=== PATIENT | female | born 1955 ===

== ENCOUNTER 2024-11-26 11:26 | Outpatient (AMB) | payer OTHER, SELFPAY ==
--- NOTE | 2024-11-26 11:31 | A.OFFPC_ITS ---
Vital Signs 11/26/24 11:42 Height 5 ft 4.57 in Weight 182 lb 2 oz BMI 30.7 BP 90/60 Blood Pressure Location Lt brachial Position Sitting Respiration 16 Pulse 89 Pulse Source Pulse Oximeter Temp 97.5 F Temp Source Oral Pulse Oximetry (%) 97 Oxygen Delivery Method Room Air Intake Visit Reasons: Headache with dizziness Intake Note: pt here for a check up and body pain head pain and dizziness have right side cant fell it. Transportation Mechanic Required: No Accompanied by: Self / Same As Patient Allergies amoxicillin (From Augmentin) Allergy (Mild, Verified 11/26/24 11:43) Rash clavulanic acid (From Augmentin) Allergy (Mild, Verified 11/26/24 11:43) Rash Tobacco use date assessed: 11/26/24 Fall risk assessment: 1 Fall in past year Last assessed Fall Risk: 11/26/24 Dental Screening Dental Screen Date: 11/26/24 Did you have a dental visit in the last 12 months?: No Did you have a dental problem in the last 6 months where you did not have access to dental care?: No Was dental information given to patient?: Patient has dentist HPI HPI Comments History of Present Illness Details History of Present Illness The patient is a 69-year-old female presenting with chronic knee pain and right shoulder pain, alongside management of heart failure and atrial fibrillation. 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 Chronic knee pain: - The patient reports chronic knee pain for several years, with previous interventions including X-rays, physical therapy, and injections, which have not provided relief. She uses a cane and she does have gait and mobility issues Right shoulder pain: - The patient experiences right shoulder pain, with limited range of motion and difficulty lifting the arm, without a history of trauma. Health Maintenance - Mammography was performed and is due a gain in October. Review of Systems - Cardiovascular: Reports heart failure and atrial fibrillation. - Musculoskeletal: Reports chronic knee pain and right shoulder pain with limited range of motion. 10-point ROS reviewed and negative excep t as noted in HPI Medications - Eliquis for atrial fibrillation - Metoprolol for atrial fibrillation -Entresto 24-26 mg 1 tab p.o. b.i.d. Past Medical History - Heart failure - Atrial fibrillation Social History - The patient is originally from [place] and has been in the current location for about 6 months. Physical Exam General: No apparent distress. Alert and oriented x 3. Head: Normocephalic, atraumatic Eyes: Pupils equal, round, and reactive to light. Extraocular movements intact Throat: O ropharynx clear. Mucus membranes moist Neck: Supple. No l eft anterior descending artery distention. No jugular vein distention. No bruit. Cardiovascular: Irregular heartbeat noted. Atrial fibrillation present. Regular rate and rhythm. Normal S1 and S2. No murmurs, rubs, or gallops Lungs: Clear to auscultation bilaterally. Breath sounds equal bilaterally. No rales, ronchi, or wheezes. Abdomen: Non-tender. Non-distended. Bowel sounds auscultated. No hepatosplenomegaly. No mass/rebound/guarding Extremities: Pain on extension of the left knee. Mild crepitus on extension and flexion of the left knee. No swelling of the lower extremities. Cannot lift right arm on active or passive motion. Cannot reach the back with the right arm. lubbing, cyanosis, and edema. 2+ pulses Neuro: Central nerves II-XII grossly intact. Motor/sensory intact. Reflexes 2. Gait normal Skin: Warm, dry, and intact. No rash. Discussion Notes I discussed with the patient the management of her chronic knee pain and right shoulder pain. We agreed to perform X-rays to assess the condition of both knees and the right shoulder. I also recommended a referral to a pain specialist for further management of her pain. We discussed the importance of continuing her current medications for atrial fibrillation and heart failure, and the need for regular follow-ups with her stitch bonding machine operator. Plan 1. Chronic systolic (congestive) heart f ailure I50.22 HCC 85 - Continue current management and follow -up with stitch bonding machine operator. No recent echocardiogram noted. 2. Unspecified atrial fibrillation I48.91 HCC 96 - Continue Eliquis and metoprolol. Regul ar follow-up with stitch bonding machine operator recommended. 3. Pain in unspecified knee M25.56 9 - X-ray of both knees ordered. Referral to pain specialist for further management. Consideration of orthopedic consultation if necessary. 4. Pain in right shoulder M25.511 - X-ray of the right shoulder ordered. R tanneral to pain specialist for further management. Patient Instructions - Continue taking Eliquis and metoprolol as prescribed. - Attend scheduled X-rays for both knees and the right shoulder. - Follow up with the pain specialist for chronic pain management. - Schedule regular follow-ups with your stitch bonding machine operator. [facility] Medical History Pain and swelling of lower leg Vaginal atrophy Uterine prolapse Trapezius muscle spasm Tietze's syndrome Thyroglossal duct cyst Pain in right shoulder Osteoarthritis of left knee Obesity, Class I, BMI 30-34.9 Multiparous Low back pain Bilateral shoulder pain Back muscle spasm A-fib FALCON (dyspnea on exertion) GERD (gastroesophageal reflux disease) Glucose intolerance Hearing loss, left Heart failure with reduced ejection fraction Chronic headaches Vitamin D deficiency Surgical History S/P tubal ligation Family History (Updated 11/26/24 @ 11:47 by Song Mosqueda MA) Father No problems noted. Mother Stomach cancer Social History (Updated 11/26/24 @ 11:33 by Song Mosqueda MA) Housing: House Alcohol intake: current Alcohol intake frequency: does not drink Patient Tobacco Use Status: Never used Tobacco service: No Current occupational status: disabled Cognitive needs: Yes (cane) Hearing needs: No Vision needs: Yes (contact) Questionnaire PHQ-9 Over the last 2 weeks, how often have you been bothered by any of the following problems? 1. Little interest or pleasure in doing things: not at all 2. Feeling down, depressed, or hopeless: not at all 3. Trouble falling or staying asleep, or sleeping too much: not at all 4. Feeling tired or having little energy: not at all 5. Poor appetite or overeating: not at all 6. Feeling bad about yourself - or that you are a failure or have let yourself or your family down: not at all 7. Trouble concentrating on things, such as reading the newspaper or watching television: not at all 8. Moving or speaking so slowly that other people could have noticed. Or the opposite - being so fidgety or restless that you have been moving around a lot more than usual: not at all 9. Thoughts that you would be better off or of hurting yourself in some way: not at all Total score: 0 Depression Screening Interpretation: Negative Depression Screening Done: Yes Source: Developed by Drs. Cecilio Crawford, Ilana Knox, Joe Cameron and colleagues, with an educational mic from [employer]. Thrive Questionnaire Date Thrive assessed: 11/26/24 I am a: Patient What is your living situation today?: I have a steady place to live Within the past 12 months, did the food you bought not last and you didn't have the money to get more?: Never true Within the past 12 months, did you worry whether your food would run out before you got money to buy more?: Never true Do you have trouble paying for medicines?: No Do you have trouble getting transportation to medical appointments?: No Do you have trouble paying your heating and electricity bill?: No Do you have trouble taking care of your child, family member or friend?: No Do you have trouble with day-to-day activities such as bathing, preparing meals, shopping, managing finances, etc.?: No Are you currently unemployed and looking for a job?: No Are you interested in more education?: No Please select the resources that you would like help with: None Currently or been in a relationship where the following occur: No concerns reported THRIVE Score: 0 AUDIT C Alcohol Use Questionnaire (AUDIT-C) 1. How often do you have a drink containing alcohol?: Never 3. How often do you have six or more drinks on one occasion?: Never Total Score: 0 AUSTIN-7 AMB Questionnaire AUSTIN-7 Date AUSTIN - 7 assessed: 11/26/24 Feeling nervous, anxious, or on edge: 0 = Not at all Not being able to stop or control worryin = Not at all Worrying too much about different things: 0 = Not at all Trouble relaxin = Not at all Being so restless that it is hard to sit still: 0 = Not at all Becoming easily annoyed or irritable: 0 = Not at all Feeling afraid as if something awful might happen: 0 = Not at all Total AUSTIN-7 score (0-4 normal; 5-9 mild; 10-14 moderate; 15-21 severe): 0 Source: Developed by Drs. Cecilio Crawford, Ilana Knox, Joe Cameron and colleagues, with an educational mic from [employer]. Physical exam (Primary Care) Tobacco/Smoking Status: Tobacco use Status Tobacco use date assessed 11/26/24 11/26/24 11:34 Patient Tobacco Use Status Never used Tobacco 11/26/24 11:34 PHQ-9: PHQ-9 Score PHQ-9: Total score 0 11/26/24 11:34 Depression Screening Interpretation: Negative Thrive Assessment: Date of Thrive Assessment Date Thrive assessed 11/26/24 11/26/24 11:34 Currently or been in a relationship where the following occur: No concerns reported Coding Level of Care Code New Pt Level 3 (14063) Diagnoses Establishing care with new doctor, encounter for Z. Routine lab draw Z. Counseling, unspecified Z71.9 HFrEF (heart failure with reduced ejection fraction) I50.20 Chronic a-fib I48.20 Class 1 obesity E66.811 Fall, initial encounter W19.XXXA Encounter type: initial encounter Chronic pain of both knees M25.561; M25.562; G89.29 Chronicity: chronic Chronic right shoulder pain M25.511; G89.29 Chronicity: chronic Impaired gait and mobility R26.89 Encounter for screening mammogram for breast cancer Z12.31 Assessment & Plan Assessment & Plan (1) Establishing care with new doctor, encounter for: Code(s): Z76.89 - Persons encountering health services in other specified circumstances (2) Routine lab draw: Code(s): Z01.89 - Encounter for other specified special examinations (3) Counseling, unspecified: Code(s): Z71.9 - Counseling, unspecified (4) HFrEF (heart failure with reduced ejection fraction): Code(s): I50.20 - Unspecified systolic (congestive) heart failure (5) Chronic a-fib: Code(s): I48.20 - Chronic atrial fibrillation, unspecified (6) Class 1 obesity: Code(s): E66.811 - Obesity, class 1 (7) Fall: Code(s): W19.XXXA - Unspecified fall, initial encounter Qualifiers: Encounter type: initial encounter Qualified Code(s): W19.XXXA - Unspecified fall, initial encounter (8) Knee pain, bilateral: Code(s): M25.561 - Pain in right knee; M25.562 - Pain in left knee Qualifiers: Chronicity: chronic Qualified Code(s): M25.561 - Pain in right knee; M25.562 - Pain in left knee; G89.29 - Other chronic pain (9) Right shoulder pain: Code(s): M25.511 - Pain in right shoulder Qualifiers: Chronicity: chronic Qualified Code(s): M25.511 - Pain in right shoulder; G89.29 - Other chronic pain (10) Impaired gait and mobility: Code(s): R26.89 - Other abnormalities of gait and mobility (11) Encounter for screening mammogram for breast cancer: Code(s): Z12.31 - Encounter for screening mammogram for malignant neoplasm of breast Plan Orders: Orders MM screening mammo BI Today Z12.39 - Encounter for other screening for malignant neoplasm of breast, Z76. - Persons encountering health services in other specified circumstances Comprehensive Met. Panel Today Z - Persons encountering health services in other specified circumstances Hepatitis C Antibody Today Z - Persons encountering health services in other specified circumstances UA CC w/rflx Micro + Cult Today Z. - Persons encountering health services in other specified circumstances Vitamin D 1,25 dihydroxy Today Z. - Persons encountering health services in other specified circumstances XR Knee Corey 3V Today G89.29 - Other chronic pain, M25.569 - Pain in unspecified knee XR shoulder RT min 2V Today G89.29 - Other chronic pain, M25.519 - Pain in unspecified shoulder Complete Blood Count Auto Diff Today Z. - Persons encountering health services in other specified circumstances Hemoglobin A1c Today Z. - Persons encountering health services in other specified circumstances Hepatitis B Surface Antibody Today Z. - Persons encountering health services in other specified circumstances Hepatitis B Surface Antigen Today Z. - Persons encountering health services in other specified circumstances HIV Ab/Ag Today Z. - Persons encountering health services in other specified circumstances Lipid Panel Today Z. - Persons encountering health services in other specified circumstances Referrals Pain Management Referral G89.29 - Other chronic pain, M25.569 - Pain in unspecified knee
[2024-11-26 11:42] VITALS: BP 90/60; PULSE 89; RESP 16; TEMP 36.4; O2SAT 97; BMI 30.7
== END 2024-11-26 12:23 | disposition home or self-care (01) ==
PROVIDERS: PCP Student in an Organized Health Care Education/Training Program; Visit Provider Student in an Organized Health Care Education/Training Program
DX: I50.20 Unspecified systolic (congestive) heart failure (principal); I48.20 Chronic atrial fibrillation, unspecified; M25.562 Pain in left knee; W19.XXXA Unspecified fall, initial encounter; G89.29 Other chronic pain; M25.561 Pain in right knee; E66.811 Obesity, class 1; M25.511 Pain in right shoulder; R26.89 Other abnormalities of gait and mobility; Z12.31 Encounter for screening mammogram for malignant neoplasm of breast

== ENCOUNTER → 2024-11-26 11:26 | Outpatient (BNVA) | payer OTHER, SELFPAY | PROVIDERS: Visit Provider Student in an Organized Health Care Education/Training Program | DX: Z76.89 Persons encountering health services in other specified circumstances (principal); I50.20 Unspecified systolic (congestive) heart failure; I48.20 Chronic atrial fibrillation, unspecified; E66.811 Obesity, class 1; Z68.30 Body mass index [BMI] 30.0-30.9, adult; M25.561 Pain in right knee; M25.562 Pain in left knee; M25.511 Pain in right shoulder; G89.29 Other chronic pain; R26.89 Other abnormalities of gait and mobility; Z79.01 Long term (current) use of anticoagulants; Z79.899 Other long term (current) drug therapy; Z91.81 History of falling; Z13.31 Encounter for screening for depression; Z13.39 Encounter for screening examination for other mental health and behavioral disorders | CPT/HCPCS: 96127; 99202 ==

== ENCOUNTER 2024-12-01 10:43 | Outpatient (REF) | payer OTHER, SELFPAY ==
[2024-12-01 11:03] LABS: MANUAL DIFF FLAG NO
[2024-12-01 11:31] LABS: Hematocrit 39.1 % (37.0-47.0); Hemoglobin 12.4 g/dl (12.0-16.0); Imm Gran Abs Auto 0.01 X10*3/uL (0.00-0.03); Imm Gran Pct Auto 0.3 % (0.0-0.4); Lymphocytes Absolute Auto 1.6 X10*3/uL (1.2-4.9); Mean Corpuscular HGB Conc 31.7 g/dl (31.0-35.0); Mean Corpuscular Hemoglobin 25.7 pg (27.0-33.0); Mean Corpuscular Volume 81.1 fL (80.0-98.0); NRBC Abs Auto 0.000 X10*3/uL (0.0-0.012); NRBC Pct Auto 0.0 /100WBC (0.0-0.2); Platelet Count 179 X10*3/uL (160-400); Red Blood Count 4.82 X10*6/uL (4.20-5.50); White Blood Count 4.0 X10*3/uL (4.8-10.8)
[2024-12-01 11:49] LABS: Hemoglobin A1C 136.4059 umol/L; Total Hemoglobin (HGBA1C) 3227.9133 umol/L
[2024-12-01 12:05] LABS: Alanine Aminotransferase 17 U/L (0-31); Albumin Level 4.3 g/dL (3.5-5.0); Alkaline Phosphatase 74 U/L (39-117); Anion Gap 7 (12-20); Aspartate Amino Transferase 23 U/L (5-31); Blood Urea Nitrogen 15 mg/dL (9-16); Calcium 9.2 mg/dL (8.4-10.2); Carbon Dioxide 32 mmol/L (22-29); Chloride 107 mmol/L (96-108); Cholesterol 185 mg/dL (<200); Estimated Glomerular Filt Rate > 60; HDL Cholesterol 59 mg/dL (>40); Potassium 4.2 mmol/L (3.3-5.1); Sodium 142 mmol/L (135-145); Total Protein 7.0 g/dL (6.5-8.0); Triglycerides 103 mg/dL (<150)
--- OUTSIDE RECORDS SUMMARY | 2024-12-01 13:38 | XMS_ITS | Clinical Summary ---
Author Organization [facility] Address [address] [place] [address] Care Team Providers Care Senior Agricultural Assistant Name Role Phone Trish Coleman DO Primary Care Provider [phone] Social History Tobacco Use Types Packs/Day Years Used Date Smoking Tobacco: Never Assessed Comments Unknown Sex and Gender Information Value Date Recorded Sex Assigned at Not on file Legal Sex Female 2:26 PM EST Gender Identity Not on file Sexual Orientation Not on file Plan of Treatment Health Maintenance Due Date Last Done Comments Breast Cancer Screening 1955 Pneumococcal Vaccine: 50+ Ye ars (1 of 1 - PCV) 2007 Zoster Vaccines (1 of 2) 2007 DTaP,Tdap,and Td Vaccines (2 - Td or Tdap) 08/08/2019 08/07/2009 Depression Screening 03/17/2024 COVID-19 Vaccine ( - 2023-2 5 season) 2024 Influenza Vaccine (#1) 2024 06/03/2016 RSV Immunization Adult Patie nts (1 - 1-dose 75+ series) 2032 HIB Vaccines Aged Out No longer eligi ble based on patient's age to complete this topic HPV Vaccines Aged Out No longer eligi ble based on patient's age to complete this topic Hepatitis A Vaccines Aged Out No long er eligible based on patient's age to complete this topic Hepatitis B Vaccines Aged Out No long er eligible based on patient's age to complete this topic IPV Vaccines Aged Out No longer eligi ble based on patient's age to complete this topic MMR Vaccines Aged Out No longer eligi ble based on patient's age to complete this topic Meningococcal ACWY Vaccine Aged Out N o longer eligible based on patient's age to complete this topic Meningococcal B Vaccine Aged Out No l onger eligible based on patient's age to complete this topic RSV Immunization Patients Un brittany 20 months Aged Out No longer eligible b ased on patient's age to complete this topic Varicella Vaccines Aged Out No longer eligible based on patient's age to complete this topic Care Teams Senior Agricultural Assistant Relationship Specialty Start Date [place] [address] PCP - General Internal Medicine 03/27/17
[2024-12-02 06:14] LABS: HBS Num1 0.78 mIU/mL (0-7.99); HBsAGNum1 0.42 S/CO (0.00-0.99); HIV Num 1 0.05 S/CO (0.00-0.99); Hepatitis B Surface Antigen Negative (Negative); ~HepC Num1 0.06 S/CO (0.00-0.79); ~Hepatitis B Surface Antibody NONREACTIVE (Nonreactive); ~Hepatitis C Antibody Nonreactive (Nonreactive)
[2024-12-07 04:38] LABS: VITAMIN D (1,25 OH) D3 28 pg/mL; Vit D (1,25-Dihydroxy) Total 28 pg/mL (18-72); Vitamin D (1,25 OH) D2 <8 pg/mL
== END 2024-12-01 10:44 | disposition home or self-care (01) ==
LOC: HO.LAB 10:43
PROVIDERS: PCP Student in an Organized Health Care Education/Training Program; Visit Provider Student in an Organized Health Care Education/Training Program
DX: Z11.59 Encounter for screening for other viral diseases (principal); Z13.6 Encounter for screening for cardiovascular disorders; Z13.1 Encounter for screening for diabetes mellitus; Z11.4 Encounter for screening for human immunodeficiency virus [HIV]; Z76.89 Persons encountering health services in other specified circumstances
CPT/HCPCS: 36415; 80053; 80061; 82652; 83036; 85025; 86706; 86803; 87340; 87389

== ENCOUNTER 2024-12-10 09:40 | Outpatient (AMB) | payer OTHER, SELFPAY ==
[2024-12-10 09:46] VITALS: BP 137/70; PULSE 77; RESP 16; TEMP 36.6; O2SAT 98; BMI 31.2
--- NOTE | 2024-12-10 09:46 | MHC.PC.OV ---
Vital Signs 12/10/24 09:46 Height 5 ft 4.57 in Weight 185 lb BMI 31.2 BP 137/70 Blood Pressure Location Rt brachial Position Sitting Respiration 16 Pulse 77 Pulse Source Pulse Oximeter Temp 97.9 F Temp Source Oral Pulse Oximetry (%) 98 Oxygen Delivery Method Room Air Intake Visit Reasons: 2 weeks f/u Intake Note: pt here for a check up and body pain head pain and dizziness have right side cant fell it. 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 Accompanied by: Self / Same As Patient Allergies No Known Allergies Allergy (Verified 12/10/24 09:49) Tobacco use date assessed: 11/26/24 Fall risk assessment: 1 Fall in past year Last assessed Fall Risk: 11/26/24 Dental Screening Dental Screen Date: 11/26/24 Did you have a dental visit in the last 12 months?: No Did you have a dental problem in the last 6 months where you did not have access to dental care?: No Was dental information given to patient?: Patient has dentist HPI HPI Comments History of Present Illness Details History of Present Illness The patient is a 69-year-old female presenting with a mass on the right side of the trachea and urinary incontinence. And results from last encounters Mass on the right side of the trachea: - The patient reports a mass on the right side of the trachea, with intermittent pain. Urinary incontinence: - The patient experiences urinary incontinence and has been referred to a urologist for further evaluation. Prediabetes: - The patient is prediabetic with an HbA1c level between 5.7 and 6.4%. - Dietary modifications were discussed to manage carbohydrate intake. Hyperlipidemia: - The patient has hyperlipidemia with LDL cholesterol slightly elevated at 106 mg/dL. - Dietary recommendations were provided to reduce intake of high-fat foods. Review of Systems - Endocrine: Reports prediabetes. - Genitourinary: Reports urinary incontinence. - Cardiovascular: Denies chest pain or palpitations. 10-point ROS reviewed and negative except as noted in HPI Past Medical History - Prediabetes - Hyperlipidemia Health Maintenance - Dietary counseling for prediabetes and hyperlipidemia. - Referral to a computer art instructor for dietary management. Physical Exam General: Well-appearing, in no acute distress. Vital signs: Within normal limits. HEENT: Normocephalic, atraumatic. PERRLA, EOMI. Conjunctiva clear, sclera anicteric. Oropharynx clear, mucous membranes moist. TMs intact bilaterally. Neck: Supple, mass on the right side of the trachea, no lymphadenopathy, no thyromegaly, no JVD or carotid bruits. Cardiovascular: RRR, normal S1/S2, no murmurs, rubs, or gallops. Peripheral pulses 2+ and symmetric. No edema. Respiratory: Lungs clear to auscultation bilaterally, no wheezes, rales, or rhonchi. Normal effort. Abdomen: Soft, non-tender, non-distended. Normoactive bowel sounds. No hepatosplenomegaly, no masses. MSK: Full range of motion, no joint swelling or deformity. Normal gait. Skin: Warm, dry, intact. No rashes, lesions, or pallor. Neuro: Alert and oriented x3. Cranial nerves II-XII intact. Strength 5/5 throughout. Sensation intact. Reflexes 2+ symmetric. Normal coordination and gait. Psych: Appropriate mood and affect. Normal judgment and insight. Plan 1. Mass On The Right Side Of The Trachea - Further evaluation is needed to assess the mass on the right side of the trachea. - ultrasound soft tissue of neck 2. Urinary Incontinence - Referral to a urologist for further evaluation and management. - we will hold off on medication at this time since this has been a chronic issue -we did discuss exercises for her urinary incontinence 3. Prediabetes - Dietary modifications recommended to manage carbohydrate intake. - Referral to a computer art instructor for dietary management. 4. Hyperlipidemia - Dietary recommendations provided to reduce intake of high-fat foods. - Monitor lipid levels and consider further intervention if necessary. Discussion Notes I discussed with the patient the presence of a mass on the right side of the trachea and the need for further evaluation. We also talked about urinary incontinence and the referral to a urologist for further management. I explained the implications of prediabetes and hyperlipidemia, emphasizing dietary modifications and the potential benefits of consulting a computer art instructor. The patient was informed about the importance of monitoring lipid levels and managing carbohydrate intake to prevent progression to diabetes. Patient was informed and verbally consented to the use of an ambient scribe for clinic note documentation during this visit. Patient Instructions - Follow up with the urologist as scheduled. - Take prescribed medication for urinary incontinence as directed. - Monitor dietary intake, focusing on reducing carbohydrates and high-fat foods. - Consider consulting a computer art instructor for personalized dietary advice. [facility] Medical History (Updated 12/10/24 @ 10:11 by Aiden Shepard MD) Mass in neck Hyperlipidemia Prediabetes Urinary incontinence Pain and swelling of lower leg Vaginal atrophy Uterine prolapse Trapezius muscle spasm Tietze's syndrome Thyroglossal duct cyst Pain in right shoulder Osteoarthritis of left knee Obesity, Class I, BMI 30-34.9 Multiparous Low back pain Bilateral shoulder pain Back muscle spasm A-fib FALCON (dyspnea on exertion) GERD (gastroesophageal reflux disease) Glucose intolerance Hearing loss, left Heart failure with reduced ejection fraction Chronic headaches Vitamin D deficiency Surgical History S/P tubal ligation Family History Father No problems noted. Mother Stomach cancer Social History Housing: House Alcohol intake: current Alcohol intake frequency: does not drink Patient Tobacco Use Status: Never used Tobacco service: No Current occupational status: disabled Cognitive needs: Yes (cane) Hearing needs: No Vision needs: Yes (contact) Questionnaire PHQ-9 Over the last 2 weeks, how often have you been bothered by any of the following problems? 1. Little interest or pleasure in doing things: several days 2. Feeling down, depressed, or hopeless: not at all 3. Trouble falling or staying asleep, or sleeping too much: not at all 4. Feeling tired or having little energy: several days 5. Poor appetite or overeating: not at all 6. Feeling bad about yourself - or that you are a failure or have let yourself or your family down: not at all 7. Trouble concentrating on things, such as reading the newspaper or watching television: not at all 8. Moving or speaking so slowly that other people could have noticed. Or the opposite - being so fidgety or restless that you have been moving around a lot more than usual: nearly every day 9. Thoughts that you would be better off or of hurting yourself in some way: nearly every day Total score: 8 Source: Developed by Drs. Cecilio Crawford, Ilana Knox, Joe Cameron and colleagues, with an educational mic from [employer]. Thrive Questionnaire Date Thrive assessed: 11/26/24 I am a: Patient What is your living situation today?: I choose not to answer this question Within the past 12 months, did the food you bought not last and you didn't have the money to get more?: I choose not to answer this question Within the past 12 months, did you worry whether your food would run out before you got money to buy more?: I choose not to answer this question Do you have trouble paying for medicines?: No Do you have trouble getting transportation to medical appointments?: No Do you have trouble paying your heating and electricity bill?: No Do you have trouble taking care of your child, family member or friend?: I choose not to answer this question Are you currently unemployed and looking for a job?: No Are you interested in more education?: No Please select the resources that you would like help with: Utilities Currently or been in a relationship where the following occur: I choose not to answer THRIVE Score: 0 AUDIT C Alcohol Use Questionnaire (AUDIT-C) 1. How often do you have a drink containing alcohol?: Never Total Score: 0 AUSTIN-7 AMB Questionnaire AUSTIN-7 Date AUSTIN - 7 assessed: 11/26/24 Feeling nervous, anxious, or on edge: 3 = Nearly every day Not being able to stop or control worryin = Nearly every day Worrying too much about different things: 2 = More than half the days Trouble relaxin = Not at all Being so restless that it is hard to sit still: 3 = Nearly every day Becoming easily annoyed or irritable: 1 = Several days Feeling afraid as if something awful might happen: 1 = Several days Total AUSTIN-7 score (0-4 normal; 5-9 mild; 10-14 moderate; 15-21 severe): 13 Source: Developed by Drs. Cecilio Crawford, Ilana Knox, Joe Cameron and colleagues, with an educational mic from [employer]. Physical exam (Primary Care) Vital Signs: Last Vital Signs Temp 97.9 F 12/10/24 09:46 Pulse 77 12/10/24 09:46 Resp 16 12/10/24 09:46 BP 137/70 12/10/24 09:46 Pulse Ox 98 12/10/24 09:46 Oxygen Delivery Method Room Air 12/10/24 09:46 BMI result Body Mass Index 31.2 Tobacco/Smoking Status: Tobacco use Status Tobacco use date assessed 11/26/24 12/10/24 09:54 Patient Tobacco Use Status Never used Tobacco 12/10/24 09:54 PHQ-9: PHQ-9 Score PHQ-9: Total score 8 12/10/24 09:54 Thrive Assessment: Date of Thrive Assessment Date Thrive assessed 11/26/24 12/10/24 09:54 Currently or been in a relationship where the following occur: I choose not to answer Coding Level of Care Code Est Pt Level 3 (30574) Diagnoses Urinary incontinence R32 Prediabetes R73.03 Mass in neck R22.1 Hyperlipidemia E78.5 Class 1 obesity E66.811 Use of cane as ambulatory aid Z99.89 Assessment & Plan Assessment & Plan (1) Urinary incontinence: Code(s): R32 - Unspecified urinary incontinence Category: Medical (2) Prediabetes: Code(s): R73.03 - Prediabetes Category: Medical (3) Mass in neck: Code(s): R22.1 - Localized swelling, mass and lump, neck Category: Medical (4) Hyperlipidemia: Code(s): E78.5 - Hyperlipidemia, unspecified Category: Medical (5) Class 1 obesity: Code(s): E66.811 - Obesity, class 1 (6) Use of cane as ambulatory aid: Code(s): Z99.89 - Dependence on other enabling machines and devices Plan Orders: Orders US soft tiss head and/or neck Today R22.1 - Localized swelling, mass and lump, neck Referrals Nurse Navigator Referral E78.5 - Hyperlipidemia, unspecified, R73.03 - Prediabetes Urology Referral R32 - Unspecified urinary incontinence
--- OUTSIDE RECORDS SUMMARY | 2024-12-10 10:42 | XMS_ITS | Clinical Summary ---
Author Organization [facility] ity Address [address] [place] [address] Care Team Providers Care Senior Training Specialist Name Role Phone Trish Coleman DO Primary Care Provider Social History Tobacco Use Types Packs/Day Years [...] to complete this topic Care Teams Senior Training Specialist Relationship Specialty Start Date [place] [address] PCP - General Internal Medicine 03/27/17
== END 2024-12-10 10:12 | disposition home or self-care (01) ==
LOC: HO.HMCFMS 09:41
PROVIDERS: PCP Student in an Organized Health Care Education/Training Program; Visit Provider Student in an Organized Health Care Education/Training Program
DX: R73.03 Prediabetes (principal); R32 Unspecified urinary incontinence; Z68.31 Body mass index [BMI] 31.0-31.9, adult; E66.811 Obesity, class 1; R22.1 Localized swelling, mass and lump, neck; E78.5 Hyperlipidemia, unspecified; Z99.89 Dependence on other enabling machines and devices

== ENCOUNTER → 2024-12-10 09:40 | Outpatient (BNVA) | payer OTHER, SELFPAY | PROVIDERS: PCP Student in an Organized Health Care Education/Training Program; Visit Provider Student in an Organized Health Care Education/Training Program | DX: R32 Unspecified urinary incontinence (principal); R73.03 Prediabetes; R22.1 Localized swelling, mass and lump, neck; E78.5 Hyperlipidemia, unspecified; E66.811 Obesity, class 1; Z68.31 Body mass index [BMI] 31.0-31.9, adult; Z99.89 Dependence on other enabling machines and devices; Z13.30 Encounter for screening examination for mental health and behavioral disorders, unspecified; M17.12 Unilateral primary osteoarthritis, left knee; M25.561 Pain in right knee; M25.562 Pain in left knee | CPT/HCPCS: 96127; 99202; 99212 ==

== ENCOUNTER 2024-12-10 13:08 | Outpatient (AMB) | payer OTHER, SELFPAY ==
--- NOTE | 2024-12-10 13:20 | MHC.OFFVIS ---
Vital Signs 12/10/24 13:25 Height 5 ft 4.57 in Weight 180 lb BMI 30.4 BP 122/85 Blood Pressure Location Lt brachial Position Sitting Pulse 101 H Pulse Source Pulse Oximeter Pulse Oximetry (%) 98 Oxygen Delivery Method Room Air Intake Visit Reasons: Pain in unspecified knee Intake Note: Pain today 11/24 Allergies amoxicillin (From Augmentin) Allergy (Unknown, Verified 12/10/24 13:25) Unknown clavulanic acid (From Augmentin) Allergy (Unknown, Verified 12/10/24 13:25) Unknown HPI Comments Details: The patient is a 69-year-old female presenting with left knee pain. The pain began a couple of months ago and has persisted without a specific injury or inciting event. It is described as sharp, burning, and aching and significantly interferes with her sleep and daily activities. She reports that the pain is exacerbated by activities such as climbing stairs, walking, and standing up from a sitting position. While previously undergoing physical therapy at [facility] and receiving knee injections 2-3 years ago at [facility] provided initial relief, these solutions have not offered long-term benefits. In addition to the left knee pain, the patient also reports right knee pain, although it is less severe. She experiences additional discomfort in her shoulders and lower back, which she describes similarly as sharp and burning. The patient's medical history includes prediabetes and atrial fibrillation for which she takes Eliquis. She reports nocturnal urinary incontinence, with pending referral to Urology. Patient was seen at [facility] for back pain with known history of spinal and foraminal stenosis per MRI 2022. - Onset: Chronic pain for 3 years, worsening for past few months - Quality: Sharp, burning, dull and aching. - Location: Primarily in the left knee, with lesser involvement of the right knee. - Exacerbating factors: Climbing stairs, walking, and transition from sitting to standing. - Relieving factors: Initial relief from previous knee cortisone injections, ice, Tylenol - Interference: Affects sleep and daily activities. - Affect: Pain impacts sleep and daily activities. - Analgesia: Previously received knee injections with initial relief; considering diagnostic injections and nerve ablation. - Adverse Effects: No adverse effects from current pain management. - Activities of Daily Living: Pain interferes with climbing stairs, walking, and transition from sitting to standing. - Aberrant Drug Related Behaviors: No aberrant behaviors reported. [facility] Medical History (Updated 12/10/24 @ 14:08 by GLORY Alonso) Osteoarthritis of knee Leg pain Hearing loss Frequent stools Mass in neck Hyperlipidemia Prediabetes Urinary incontinence Pain and swelling of lower leg Vaginal atrophy Uterine prolapse Trapezius muscle spasm Tietze's syndrome Thyroglossal duct cyst Pain in right shoulder Osteoarthritis of left knee Obesity, Class I, BMI 30-34.9 Multiparous Low back pain Bilateral shoulder pain Back muscle spasm A-fib FALCON (dyspnea on exertion) GERD (gastroesophageal reflux disease) Glucose intolerance Hearing loss, left Heart failure with reduced ejection fraction Chronic headaches Vitamin D deficiency Surgical History H/O vein stripping H/O tubal ligation S/P tubal ligation Family History Father No problems noted. Mother Stomach cancer Social History Housing: House Alcohol intake: current Alcohol intake frequency: does not drink Patient Tobacco Use Status: Never used Tobacco service: No Current occupational status: disabled Cognitive needs: Yes (cane) Hearing needs: No Vision needs: Yes (contact) Review of Systems Const Details: - Musculoskeletal: Reports bilateral knee pain, shoulder pain, and lower back pain. - Cardiovascular: Reports dizziness; denies chest pain or palpitations. - Endocrine: Reports prediabetes; denies any known complications. - Genitourinary: Reports nocturnal urinary incontinence. All systems reviewed & are unremarkable except as noted in HPI and below Physical Exam Vital Signs: Last Vital Signs Pulse 101 H 12/10/24 13:25 BP 122/85 12/10/24 13:25 Pulse Ox 98 12/10/24 13:25 Oxygen Delivery Method Room Air 12/10/24 13:25 BMI result Body Mass Index 30.4 General: Appears afebrile. Alert and oriented. Mood and affect appropriate. Follows and participates in conversation appropriately. Respiratory effort is unlabored. No cough. Able to transition from sit to stand unassisted. Ambulates with bilaterally normal heel strike and toe off. Extrem Right lower extremity: knee Details: normal to inspection, tenderness Location: of the lateral joint line, normal ROM and crepitus; no swelling, no ecchymosis, no deformity and no unusual warmth Left lower extremity: knee (Limited ROM due to pain) Details: normal to inspection, tenderness Location: of the patella and of the medial joint line and crepitus; no swelling, no ecchymosis, no deformity and no unusual warmth Results Reviewed Results Reviewed: No imaging results are available for review. Assessment & Plan Assessment & Plan (1) Pain in both knees: Code(s): M25.561 - Pain in right knee; M25.562 - Pain in left knee (2) Osteoarthritis of left knee: Comment: s/p steroid injections, seen by ortho Code(s): M17.12 - Unilateral primary osteoarthritis, left knee Category: Medical Plan The plan includes completing the ordered knee x-rays by PCP to assess for any structural abnormalities and evaluate degree of arthritis contributing to the patient's pain. For pain management, we will pursue options such as cortisone and gel injections, diagnostic nerve blocks, and potentially genicular radiofrequency ablation or peripheral nerve stimulation contingent on the diagnostic findings. Continue Tylenol and lidocaine patches to manage her pain while avoiding NSAIDs due to her use of Eliquis. Schedule left knee intra-articular steroid injection with local and fluoroscopy. Expectations, risks and benefits were reviewed. Patient is aware she will be contacted to schedule this procedure. Patient on anticoagulation (Eliquis) and instructions given on when to pause with prescribing physician permission. All questions and concerns have been answered and patient agreed with the treatment plan. Follow up for and sooner as needed. Patient was informed and verbally consented to the use of an ambient scribe for clinic note documentation during this visit. Medications: New lidocaine 5% 2 patches topical DAILY 30 ea 1RF pain 15 days M17.0 - Bilateral primary osteoarthritis of knee, M25.561 - Pain in right knee, M25.562 - Pain in left knee Coding Level of Care Code New Pt Level 4 (81144) Diagnoses Pain in both knees M25.561; M25.562 Osteoarthritis of left knee M17.12
[2024-12-10 13:25] VITALS: BP 122/85; PULSE 101; O2SAT 98; BMI 30.4
== END 2024-12-10 13:56 | disposition home or self-care (01) ==
LOC: HO.PMC 13:08
PROVIDERS: PCP Student in an Organized Health Care Education/Training Program; Visit Provider Nurse Practitioner Family
DX: M25.561 Pain in right knee (principal); M25.562 Pain in left knee; M17.12 Unilateral primary osteoarthritis, left knee
CPT/HCPCS: 99204

== ENCOUNTER 2024-12-15 12:32 | Outpatient (REF) | payer OTHER, SELFPAY ==
--- NOTE | ~2024-12-15 | XR_ITS ---
EXAMINATION: XR KNEE 4 VIEWS BILATERAL HISTORY: chronic hx of knee pain COMPARISON: There are no prior studies available for comparison. FINDINGS: Eight views of the bilateral knees are submitted. Osseous mineralization is normal. There is no fracture or dislocation. There is severe osteoarthritis of the bilateral medial compartments and moderate to severe osteoarthritis of the bilateral patellofemoral compartments. There is a small suprapatellar joint effusion on the left. XR/XR Knee Corey 4V IMPRESSION: Osteoarthritis of the bilateral knees as described. Electronically signed by: Cecilio Salgado MD 12/15/2024 01:28 PM EDT
--- NOTE | ~2024-12-15 | XR_ITS ---
EXAMINATION: XR SHOULDER, RIGHT CLINICAL INFORMATION: M25.519 - Pain in unspecified shoulder COMPARISON: None available. TECHNIQUE: AP external rotation, Grashey, scapular Y, and axillary views of the right shoulder. FINDINGS: Normal bone mineralization. No fracture, dislocation, or suspicious bone lesion. Normal alignment. The glenohumeral joint demonstrates mild to moderate degenerative arthrosis. The AC joint demonstrates moderate degree of arthritis and undersurface spurring. There is a type II acromion. No undersurface spurring. The subacromial space is preserved. Remainder of the soft tissue and bony structures appear normal. XR/XR shoulder RT min 2V IMPRESSION: 1. No acute bony or soft tissue abnormalities. 2. Mild to moderate glenohumeral joint osteoarthritis, and moderate changes in the AC joint. Electronically signed by: Kemar Salamanca MD 12/15/2024 01:29 PM EDT
--- OUTSIDE RECORDS SUMMARY | 2024-12-15 13:53 | XMS_ITS | Clinical Summary ---
Author Organization [facility] ity Address [address] [place] [address] Care Team Providers Care System Specialist Name Role Phone Trish Coleman DO Primary Care Provider [phone] Social History Tobacco Use Types Packs/Day Years [...] age to complete this topic Care Teams System Specialist Relationship Specialty Start [place] [address] PCP - General Internal Medicine 03/27/17
== END 2024-12-15 12:33 | disposition home or self-care (01) ==
LOC: HO.XRAY 12:32
PROVIDERS: PCP Student in an Organized Health Care Education/Training Program; Visit Provider Student in an Organized Health Care Education/Training Program
DX: M25.561 Pain in right knee (principal); M25.562 Pain in left knee; M25.511 Pain in right shoulder; G89.29 Other chronic pain
CPT/HCPCS: 73030; 73564

== ENCOUNTER → 2024-12-15 12:39 | Outpatient (BNV) | payer OTHER, SELFPAY | PROVIDERS: PCP Student in an Organized Health Care Education/Training Program; Visit Provider Radiology Diagnostic Radiology | DX: M17.0 Bilateral primary osteoarthritis of knee (principal); M19.011 Primary osteoarthritis, right shoulder | CPT/HCPCS: 73030; 73564 ==

== ENCOUNTER 2025-01-13 11:27 | Outpatient (REF) | payer OTHER, SELFPAY | END 2025-01-13 11:28 | disposition home or self-care (01) | LOC: HO.MAMMO 11:27 | PROVIDERS: PCP Student in an Organized Health Care Education/Training Program; Visit Provider Student in an Organized Health Care Education/Training Program | DX: Z12.31 Encounter for screening mammogram for malignant neoplasm of breast (principal) | CPT/HCPCS: 77063; 77067 ==

== ENCOUNTER → 2025-01-13 11:30 | Outpatient (BNV) | payer OTHER, SELFPAY | PROVIDERS: PCP Student in an Organized Health Care Education/Training Program; Visit Provider Internal Medicine | DX: Z12.31 Encounter for screening mammogram for malignant neoplasm of breast (principal) | CPT/HCPCS: 77063; 77067 ==

== ENCOUNTER 2025-01-21 13:43 | Outpatient (AMB) | payer OTHER, SELFPAY ==
[2025-01-21 13:47] VITALS: BP 160/71; PULSE 75; RESP 16; TEMP 36.3; O2SAT 99; BMI 31.4
--- NOTE | 2025-01-21 13:47 | MHC.PC.OV ---
Vital Signs 01/21/25 13:47 Height 5 ft 4.57 in Weight 186 lb 5 oz BMI 31.4 BP 160/71 H Blood Pressure Location Rt brachial Position Sitting Respiration 16 Pulse 75 Pulse Source Pulse Oximeter Temp 97.4 F Temp Source Oral Pulse Oximetry (%) 99 Oxygen Delivery Method Room Air Intake Visit Reasons: discuss medication Allergies amoxicillin (From Augmentin) Allergy (Unknown, Verified 01/21/25 13:48) Unknown clavulanic acid (From Augmentin) Allergy (Unknown, Verified 01/21/25 13:48) Unknown Tobacco use date assessed: 11/26/24 Dental Screening Dental Screen Date: 11/26/24 HPI HPI Comments History of Present Illness Details History of Present Illness The patient is a 69-year-old female presenting for clarification of her diabetes status and for a medication review. Heart Failure: The patient has a diagnosis of heart failure, which is described as her heart being very weak. Her condition is managed by a music researcher, with medications including Entresto, carvedilol, and dapagliflozin. She was given a new prescription for carvedilol but has not started it yet. She is also on apixaban and metoprolol for her AFib prediabetes The patient is uncertain of her diabetes status and asked for clarification on whether she has prediabetes or diabetes. she has a history of prediabetes last A1c 6.0 She takes dapagliflozin (Farxiga), which was prescribed for its secondary heart-protective effects. Adverse effect of medication: The patient reports experiencing side effects from her medications, including generalized somnolence. She specifically identifies metoprolol as causing increased urinary frequency. Medications: - Apixaban (Eliquis) - Carvedilol for heart failure management - Sacubitril/valsartan (Entresto) for heart failure, new prescription not yet started - Metoprolol for AFib - Dapagliflozin (Farxiga) for cardiac protection Social History: - The patient lives alone. - The patient has a 10-year-old dog that provides emotional support. Diagnostic Results: - The patient reports having a home device to monitor her blood pressure and weight. Past Medical History - Heart failure - History of diabetes Health Maintenance - Utilizes a home monitoring device for blood pressure and weight. [facility] Medical History (Updated 01/21/25 @ 14:55 by Aiden Shepard MD) Osteoarthritis of knee Leg pain Hearing loss Frequent stools Mass in neck Hyperlipidemia Prediabetes Urinary incontinence Pain and swelling of lower leg Vaginal atrophy Uterine prolapse Trapezius muscle spasm Tietze's syndrome Thyroglossal duct cyst Pain in right shoulder Osteoarthritis of left knee Obesity, Class I, BMI 30-34.9 Multiparous Low back pain Bilateral shoulder pain Back muscle spasm A-fib FALCON (dyspnea on exertion) GERD (gastroesophageal reflux disease) Glucose intolerance Hearing loss, left Heart failure with reduced ejection fraction Chronic headaches Vitamin D deficiency Surgical History H/O vein stripping H/O tubal ligation S/P tubal ligation Family History Father No problems noted. Mother Stomach cancer Social History Housing: House Alcohol intake: current Alcohol intake frequency: does not drink Patient Tobacco Use Status: Never used Tobacco service: No Current occupational status: disabled Cognitive needs: Yes (cane) Hearing needs: No Vision needs: Yes (contact) Questionnaire Thrive Questionnaire Date Thrive assessed: 11/26/24 I am a: Patient What is your living situation today?: I choose not to answer this question Within the past 12 months, did the food you bought not last and you didn't have the money to get more?: I choose not to answer this question Within the past 12 months, did you worry whether your food would run out before you got money to buy more?: I choose not to answer this question Do you have trouble paying for medicines?: No Do you have trouble getting transportation to medical appointments?: No Do you have trouble paying your heating and electricity bill?: No Do you have trouble taking care of your child, family member or friend?: I choose not to answer this question Are you currently unemployed and looking for a job?: No Are you interested in more education?: No Please select the resources that you would like help with: Utilities Currently or been in a relationship where the following occur: I choose not to answer THRIVE Score: 0 AUSTIN-7 AMB Questionnaire AUSTIN-7 Date AUSTIN - 7 assessed: 11/26/24 Source: Developed by Ilana Pimentel B.W. Abilio, Joe Cameron and colleagues, with an educational mic from [employer]. Review of Systems Narrative Review of Systems - General: Reports somnolence, which she attributes to her medications. - Genitourinary: Reports increased urinary frequency, which she attributes to metoprolol. 10-point ROS reviewed and negative except as noted in HPI Physical exam (Primary Care) Vital Signs: Last Vital Signs Temp 97.4 F 01/21/25 13:47 Pulse 75 01/21/25 13:47 Resp 16 01/21/25 13:47 BP 160/71 H 01/21/25 13:47 Pulse Ox 99 01/21/25 13:47 Oxygen Delivery Method Room Air 01/21/25 13:47 BMI result Body Mass Index 31.4 Tobacco/Smoking Status: Tobacco use Status Tobacco use date assessed 11/26/24 01/21/25 14:00 Patient Tobacco Use Status Never used Tobacco 01/21/25 14:00 Thrive Assessment: Date of Thrive Assessment Date Thrive assessed 11/26/24 01/21/25 14:00 Currently or been in a relationship where the following occur: I choose not to answer Narrative Physical Exam General: Well-appearing, in no acute distress. Vital signs: Within normal limits. HEENT: Normocephalic, atraumatic. PERRLA, EOMI. Conjunctiva clear, sclera anicteric. Oropharynx clear, mucous membranes moist. TMs intact bilaterally. Neck: Supple, no lymphadenopathy, no thyromegaly, no JVD or carotid bruits. Cardiovascular: RRR, normal S1/S2, no murmurs, rubs, or gallops. Peripheral pulses 2+ and symmetric. No edema. Patient has a history of cardiac failure and is on medications including apixaban, carvedilol, sacubitril/valsartan, metoprolol, and Farxiga for heart management. Respiratory: Lungs clear to auscultation bilaterally, no wheezes, rales, or rhonchi. Normal effort. Abdomen: Soft, non-tender, non-distended. Normoactive bowel sounds. No hepatosplenomegaly, no masses. MSK: Full range of motion, no joint swelling or deformity. Normal gait. Skin: Warm, dry, intact. No rashes, lesions, or pallor. Neuro: Alert and oriented x3. Cranial nerves II-XII intact. Strength 5/5 throughout. Sensation intact. Reflexes 2+ symmetric. Normal coordination and gait. Psych: Appropriate mood and affect. Normal judgment and insight. Patient reports feeling sleepy due to medications and experiences frequent urination with metoprolol. Coding Level of Care Code Est Pt Level 3 (52950) Diagnoses Prediabetes R73.03 Adjustment disorder with anxiety F43.22 Heart failure with reduced ejection fraction I50.20 A-fib I48.91 Assessment & Plan Assessment & Plan (1) Prediabetes: Code(s): R73.03 - Prediabetes Category: Medical (2) Adjustment disorder with anxiety: Code(s): F43.22 - Adjustment disorder with anxiety (3) Heart failure with reduced ejection fraction: Code(s): I50.20 - Unspecified systolic (congestive) heart failure Category: Medical (4) A-fib: Code(s): I48.91 - Unspecified atrial fibrillation Category: Medical Plan Consent Patient was informed and verbally consented to the use of an ambient scribe for clinic note documentation during this visit. Plan 1. Heart Failure - Advised to continue taking all prescribed cardiac medications to care for her heart. - Encouraged to start the new prescription for carvedilol as per cardiology - Explained that the medications are to prevent acute exacerbations such as dyspnea and leg swelling. - Advised to discuss medication side effects, including sleepiness and increased urinary frequency from metoprolol, with her music researcher. - Requested that the patient ask her music researcher and other specialists to send their clinical notes for better care coordination. 2. prediabetes - Clarified that while dapagliflozin (Farxiga) is a medication for diabetes, it is prescribed in her case for its secondary effect of heart protection. Discussion Notes I explained to the patient that her medications, including carvedilol, sacubitril/valsartan (Entresto), and , are for the management of her heart failure. I also clarified that dapagliflozin (Farxiga), while a diabetes medication, is prescribed primarily for its cardioprotective benefits. I emphasized the importance of adhering to her medication regimen to prevent heart failure exacerbations, such as dyspnea and edema. Regarding her concerns about side effects, including somnolence and increased urinary frequency from metoprolol, I advised her to discuss these with her music researcher, as he is the prescribing physician. For better care coordination, I instructed the patient to request that her music researcher and other specialists forward their clinical notes to my office. Patient Instructions - Continue taking all your heart medications as prescribed, including the new one, to help protect your heart. - Talk to your heart doctor (music researcher) about the side effects you are feeling, such as sleepiness and needing to urinate frequently. - When you see your other doctors, please ask their office to send their notes to me so I can better coordinate your care. Medical Decision Making The patient is a 69-year-old female with a history of heart failure and diabetes whose care is managed by a music researcher. She presented for clarification of her medications and prediabetes diagnosis. Her regimen includes guideline-directed medical therapy for heart failure, such as carvedilol, sacubitril/valsartan, and an SGLT2 inhibitor (dapagliflozin), along with metoprolol and apixaban for her AFib The patient reported adverse effects, including somnolence and polyuria, which she attributes to metoprolol. Given that these medications are prescribed and managed by her music researcher, the plan is to reinforce the importance of medication adherence to prevent cardiac decompensation and to direct the patient to discuss side effect management with her specialist. I also explained that dapagliflozin provides a cardioprotective benefit, which is a lang part of her heart failure management. Improved care coordination will be facilitated by requesting notes from her specialists. Total time spent caring for the patient today was 20 minutes. This includes time spent before the visit reviewing the chart, time spent documenting, and time spent reviewing laboratory results, diagnostic imaging, medications, performing a medically necessary evaluation, counseling on diagnoses, care coordination
--- OUTSIDE RECORDS SUMMARY | 2025-01-21 15:45 | XMS_ITS | Clinical Summary ---
Author Organization [facility] ity Address [address] [place] [address] Care Team Providers Care Shop Worker Name Role Phone Trish Coleman DO Primary Care Provider [phone] Social History Tobacco Use Types Packs/Day Years [...] age to complete this topic Care Teams Shop Worker Relationship Specialty Start Date [place] [address] PCP - General Internal Medicine 03/27/17
== END 2025-01-21 14:23 | disposition home or self-care (01) ==
LOC: HO.HMCFMS 13:44
PROVIDERS: PCP Student in an Organized Health Care Education/Training Program; Visit Provider Student in an Organized Health Care Education/Training Program
DX: R73.03 Prediabetes (principal); F43.22 Adjustment disorder with anxiety; I50.20 Unspecified systolic (congestive) heart failure; I48.91 Unspecified atrial fibrillation

== ENCOUNTER → 2025-01-21 13:43 | Outpatient (BNVA) | payer OTHER, SELFPAY | PROVIDERS: PCP Student in an Organized Health Care Education/Training Program; Visit Provider Student in an Organized Health Care Education/Training Program | DX: R73.03 Prediabetes (principal); I11.0 Hypertensive heart disease with heart failure; I50.20 Unspecified systolic (congestive) heart failure; I48.91 Unspecified atrial fibrillation; F43.22 Adjustment disorder with anxiety; Z13.30 Encounter for screening examination for mental health and behavioral disorders, unspecified | CPT/HCPCS: 99212 ==

== ENCOUNTER 2025-01-31 14:45 | Outpatient (AMB) | payer OTHER, SELFPAY ==
--- NOTE | 2025-01-31 14:44 | A.OFFVIS_ITS ---
Intake Visit Reasons: Initial Nutrition Assessment Allergies amoxicillin (From Augmentin) Allergy (Unknown, Verified 01/21/25 13:48) Unknown clavulanic acid (From Augmentin) Allergy (Unknown, Verified 01/21/25 13:48) Unknown Nutrition Presentation Details: Met with patient in her home with CHW Sarah to assist with some Lithuanian translation. Has never met with an RD before. Tries to follow a low sodium diet. Checks BP most days, usually in the morning. Weight self every day, around 177# Was 189# a few months ago. Reports to be eating the same but losing weight. Sometimes skips breakfast because it will cause a BM if she has to go somewhere. Reason for consult: other (Pre DM, Cholesterol) Unstable SDH: Reports use of SNAP Food allergies/aversions: No Smoking assessment: Reviewed (none) Alcohol assessment: Reviewed (none) Physical activity assessment: Reviewed (none) Diet Assmnt Dietary counseling: diabetic diet and Mediterranean Who buys your food: self and other (daughter) Who prepares/cooks your food: self and other (daughter) Meal frequency: regular: lunch (fish, fries, mac & cheese), dinner (rice, beans, means) and snacks (cheerios, nutrigrain bars, applesauce, fruit, banana) and irregular: breakfast (not consistent) Lifestyle Family support: Yes Exercise: No BS Monitoring Most Recent Diabetes Results: Cholesterol, (<200) 185 mg/dL 12/01/24 HDL Cholesterol, (>40) 59 mg/dL 12/01/24 Triglycerides, (<150) 103 mg/dL 12/01/24 Creatinine, (0.5-1.4) 0.80 mg/dL 12/01/24 BUN, (9-16) 15 mg/dL 12/01/24 Sodium, (135-145) 142 mmol/L 12/01/24 Potassium, (3.3-5.1) 4.2 mmol/L 12/01/24 Chloride, (96-108) 107 mmol/L 12/01/24 Carbon Dioxide, (22-29) 32 mmol/L H 12/01/24 Calcium, (8.4-10.2) 9.2 mg/dL 12/01/24 AST, (5-31) 23 U/L 12/01/24 ALT, (0-31) 17 U/L 12/01/24 Total Protein, (6.5-8.0) 7.0 g/dL 12/01/24 Albumin, (3.5-5.0) 4.3 g/dL 12/01/24 Assessment Nutrition recommendation: RD nutrition education QUV-Hlmdovc-Xp.Jeor Equation Calculated Activity Level: Sedentary Diagnosis Nutrition problem #1: food nutri know defi, undesirable food choices and inadequate protein energy As related to (etiology) #1: lack of nutrit education, renal dysfunction, unsure how to apply info, increased PRO needs and physical inactivity As evidenced by (sign/symptom) #1: est intake less than need (low in fiber & protein), poor PO intake, knowledge deficit of diet, weight loss (question if PO intake is sufficient) and no prior educ - nutri rec Monitoring/Goals Nutrition problem monitoring: total energy intake, level of knowledge/skill, total PRO intake, total CHO intake and oral fluids (monitor for fluid retention) Nutrition goal/outcome: list 3 high Na+ foods, list 3 diab diet goals and list 3 high fiber foods Outcome progress: verbalized understanding Learning/Education Readiness to learn: excellent Stages of change: action Educational materials provided: Yes (In Lithuanian-snack guide, HIP, planning meals) Date of nutrition screenin01/31/25 Date of nutritional follow-up: 03/24/25 Follow up Follow-up frequency: monthly Time Outcome assessment time: 60 minutes [facility] Medical History (Updated 01/21/25 @ 14:55 by Aiden Shepard MD) Osteoarthritis of knee Leg pain Hearing loss Frequent stools Mass in neck Hyperlipidemia Prediabetes Urinary incontinence Pain and swelling of lower leg Vaginal atrophy Uterine prolapse Trapezius muscle spasm Tietze's syndrome Thyroglossal duct cyst Pain in right shoulder Osteoarthritis of left knee Obesity, Class I, BMI 30-34.9 Multiparous Low back pain Bilateral shoulder pain Back muscle spasm A-fib FALCON (dyspnea on exertion) GERD (gastroesophageal reflux disease) Glucose intolerance Hearing loss, left Heart failure with reduced ejection fraction Chronic headaches Vitamin D deficiency Surgical History H/O vein stripping H/O tubal ligation S/P tubal ligation Family History Father No problems noted. Mother Stomach cancer Social History Housing: House Alcohol intake: current Alcohol intake frequency: does not drink Patient Tobacco Use Status: Never used Tobacco service: No Current occupational status: disabled Cognitive needs: Yes (cane) Hearing needs: No Vision needs: Yes (contact) Assessment & Plan Assessment & Plan (1) Prediabetes: Code(s): R73.03 - Prediabetes Category: Medical Plan: 1. Begin eating a small breakfast with protein and fiber 2. start using HIP 3. increase daily exercise to build lean body mass 4. continue monitoring BP, WT and sodium intake (2) Hyperlipidemia: Code(s): E78.5 - Hyperlipidemia, unspecified Category: Medical Plan: 1. Begin eating a small breakfast with protein and fiber 2. start using HIP 3. increase daily exercise to build lean body mass 4. continue monitoring BP, WT and sodium intake Plan 1. Begin eating a small breakfast with protein and fiber 2. start using HIP 3. increase daily exercise to build lean body mass 4. continue monitoring BP, WT and sodium intake Coding Level of Care Code Nutr Indiv Intake (99232) Diagnoses Prediabetes R73.03 Hyperlipidemia E78.5
== END 2025-01-31 15:54 | disposition home or self-care (01) ==
LOC: HO.HMCCN 14:45
PROVIDERS: PCP Student in an Organized Health Care Education/Training Program; Visit Provider Dietitian, Registered
DX: R73.03 Prediabetes (principal); E78.5 Hyperlipidemia, unspecified

== ENCOUNTER → 2025-01-31 14:45 | Outpatient (BNVA) | payer OTHER, SELFPAY | PROVIDERS: PCP Student in an Organized Health Care Education/Training Program; Visit Provider Dietitian, Registered | DX: R73.03 Prediabetes (principal); E78.5 Hyperlipidemia, unspecified | CPT/HCPCS: 97802 ==

== ENCOUNTER 2025-02-04 10:50 | Outpatient (AMB) | payer OTHER, SELFPAY ==
--- OUTSIDE RECORDS SUMMARY | 2024-11-16 09:02 | XMS_ITS | Continuity of Care Document ---
Author Organization [facility] Address [address] [place] [address] [address] [place] [address] Phone Care Team Providers Care Web Ui Software Engineer Name Role Phone Timothy HERRON, SUNIL, Cecilio HOOD Unavailable U navailable Allergies, Adverse Reactions, Alerts Substance Reaction Status Criticality POTASSIUM CLAVULANATE Active No Inf ormation AMOXICILLIN TRIHYDRATE Active No In formation Procedures Procedure Date Offic Cons New/estab Mod 40 Mi- CT & [place] Duplex Scan-extrem Veins; Comp- CT & [place] Advance Directives Directive Yes / No Effective Date File Name No Information Encounters Encounter Description Practice Location Reason(s) For Visit Diagnoses Date Provider Providers Copied on Encounter [facility], [address] [place] [address] Dr Rodríguez [address], [id number], [place] tel:[phone] [facility] No Information Sep-0 5 Timothy HERRON, SUNIL, ERWIN Hernandes. [address] [place] [address] 302, [place], [place], [id number] , [place]. tel:[phone] Offic Cons New/estab Mod 40 Mi- CT & [place] [facility], [address] [place] [address] [address] [place], [id number], tel:[phone] [facility] Pain in right lower legPain in left lower legPain in right legPain in left legRestless legs syndromeUnspeci fied systolic (congestive) heart failureVenous insufficiency (chronic) (peripheral)Pru ritus, unspecifiedCram p and spasmLocalized edema 5 Timotyh HERORN RVT, ERWIN Hernandes. [address] [facility], [address], [place], [id number] , [place]. tel:[phone] Referring Provider: Mena Hdz NP, [address] [place], [address]. tel:[phone] [facility], [address] [facility] [address], [place], [id number], [place] tel:[phone] [place] - [place] Chronic venous hypertension (idiopathic) with other complications of bilateral lower extremity 5 Timothy HERRON RVT, ERWIN Hernandes. [address] [facility], [address], [place], [id number] , [place]. [phone] Referring Provider: Mena Hdz NP, [address] [place], [address]. tel:[phone] Family History Family Member Type Diagnosis Age At Onset No Information Payers Payer name Insurance type Covered constitution party ID Huia sheridan(s) [facility] CI [id number] Social History Type Description Quantity Date Captured Comments Sex Female Smoking Status No Information Chief Complaint And Reason For Visit No Information Reason For Referral Reason For Referral No Information Plan Of Treatment Date Type Action Status Goal Diet education completed Referral Ordered: Weight management: Referral to physician timeframe: 3 Months (related to Body mass index (BMI) 32.0-32.9, adult) ordered History Of Present Illness Encounter Date Complaint History Of Prese nt Illness No Information Functional Status Date Functional Assessmen t No Information Instructions Date Instruction Additional Infor matchino Pre and post instruc tions reviewed and provided Related to Pain in right lower leg Patient education booklet given Related to Pain in right lower leg Lifestyle education Related to B harsha mass index (BMI) 32.0-32.9, adult Giving Encouragement to exercise Related to Body mass index (BMI) 32.0-32.9, adult Diet education Related to Body mass index (BMI) 32.0-32.9, adult Assessments Type Assessment Date No Information Patient Care Teams Name Effective Dates (start - stop) Status Members No Information
--- OUTSIDE RECORDS SUMMARY | 2025-02-04 11:42 | XMS_ITS | Clinical Summary ---
Author Organization [facility] ity Address [address] [place] [address] Care Team Providers Care Operating Room Coordinator Name Role Phone Trish Coleman DO Primary Care Provider [phone] Social History Tobacco Use Types Packs/Day Years [...] Depression Screening 03/17/2024 COVID-19 Vaccine ( - 2024-2 6 season) 2024 Influenza Vaccine (#1) 2024 06/03/2016 [...] age to complete this topic Care Teams Operating Room Coordinator Relationship Specialty Start Date [place] [address] PCP - General Internal Medicine 03/27/17
--- NOTE | 2025-02-04 11:51 | A.OFFVIS_ITS ---
Intake Visit Reasons: urinary incontinence Intake Note: New patient presents today for initial visit for urinary incontinence Urology Medication:None Blood Thinner:Apixaban Antibiotic Allergies:None PVR:0ml Special Agent Secret Service Required: Yes Special Agent Secret Service Name: Meseret [facility] Certified Allergies amoxicillin (From Augmentin) Allergy (Unknown, Verified 02/04/25 11:51) Unknown clavulanic acid (From Augmentin) Allergy (Unknown, Verified 02/04/25 11:51) Unknown HPI Comments Details: Eleven 04/05/2024 it is here as a new patient for urinary incontinence hi this is doctor Miquel messina I have a patient Danya in the office for [facility] Medical History Osteoarthritis of knee Leg pain Hearing loss Frequent stools Mass in neck Hyperlipidemia Prediabetes Urinary incontinence Pain and swelling of lower leg Vaginal atrophy Uterine prolapse Trapezius muscle spasm Tietze's syndrome Thyroglossal duct cyst Pain in right shoulder Osteoarthritis of left knee Obesity, Class I, BMI 30-34.9 Multiparous Low back pain Bilateral shoulder pain Back muscle spasm A-fib FALCON (dyspnea on exertion) GERD (gastroesophageal reflux disease) Glucose intolerance Hearing loss, left Heart failure with reduced ejection fraction Chronic headaches Vitamin D deficiency Surgical History H/O vein stripping H/O tubal ligation S/P tubal ligation Family History Father No problems noted. Mother Stomach cancer Social History Housing: House Alcohol intake: current Alcohol intake frequency: does not drink Patient Tobacco Use Status: Never used Tobacco service: No Current occupational status: disabled Cognitive needs: Yes (cane) Hearing needs: No Vision needs: Yes (contact) Office Procedures Post Void Residual Post Residual Void Post Void Residual (PVR): 0 [id number] Void Residual by ultrasound Results AMB Urinalysis, Automated UA Leukoctes 0 Siria/uL Last Edit by Nohemy Sanderson on 02/04/25 15:28 UA Nitrite Negative Last Edit by Nohemy Sanderson on 02/04/25 15:28 UA Urobilinogen 0.2 mg/dL Last Edit by Nohemy Sanderson on 02/04/25 15:28 UA Protein 0 mg/dL Last Edit by Nohemy Sanderson on 02/04/25 15:28 UA pH 6.0 Last Edit by Nohemy Sanderson on 02/04/25 15:28 UA Blood 0 Nick/uL Last Edit by Nohemy Sanderson on 02/04/25 15:28 UA Specific [place] 1.020 Last Edit by Nohemy Sanderson on 02/04/25 15:28 UA Ketone Negative Last Edit by Nohemy Sanderson on 02/04/25 15:28 UA Bilirubin 0 mg/dL Last Edit by Nohemy Sanderson on 02/04/25 15:28 UA Glucose 0 mg/dL Last Edit by Nohemy Sanderson on 02/04/25 15:28 Assessment & Plan Assessment & Plan Orders: Orders AMB Urinalysis Automated Today Z13.9 - Encounter for screening, unspecified AMB Post Void Residual by ultrasound Today R32 - Unspecified urinary incontinence Coding CPT Codes Post Residual Void - PVR CPT Code: 10845-[id number] Void Residual by ultrasound ([id number])
== END 2025-02-04 12:26 | disposition home or self-care (01) ==
LOC: HO.HUSH 10:51
PROVIDERS: PCP Student in an Organized Health Care Education/Training Program; Visit Provider Urology
DX: Z13.9 Encounter for screening, unspecified (principal)

== ENCOUNTER → 2025-02-04 10:50 | Outpatient (BNVA) | payer OTHER, SELFPAY | PROVIDERS: PCP Student in an Organized Health Care Education/Training Program; Visit Provider Urology | DX: R32 Unspecified urinary incontinence (principal) | CPT/HCPCS: 51798; 81003; 99202 ==

== ENCOUNTER 2025-02-25 11:35 | Outpatient (AMB) | payer OTHER, SELFPAY ==
[2025-02-25 11:34] VITALS: BP 152/68; PULSE 79; RESP 16; TEMP 36.6; O2SAT 99; BMI 30.2
--- NOTE | 2025-02-25 11:34 | MHC.PC.OV ---
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 Required: No Covering Machine Operator Helper Name: doctor speaks kyrgyz Accompanied by: Self / Same As Patient Allergies amoxicillin (From Augmentin) Allergy (Unknown, Verified 02/25/25 11:41) Unknown clavulanic acid (From Augmentin) Allergy (Unknown, Verified 02/25/25 11:41) Unknown Tobacco use date assessed: 11/26/24 Fall risk assessment: 1 Fall in past year Last assessed Fall Risk: 11/26/24 Dental Screening Dental Screen Date: 11/26/24 Did you have a dental visit in the last 12 months?: No Did you have a dental problem in the last 6 months where you did not have access to dental care?: No Was dental information given to patient?: Patient has dentist HPI HPI Comments History of Present Illness Details History of Present Illness The patient is a 69 year old female presenting to [facility] and request a referral for a second cardiology opinion. 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 She reports non-adherence to metoprolol but is taking Entresto, carvedilol, and apixaban (Eliquis). Her heart recovery team has advised her to stop taking Farxiga for one month, though it is noted to be beneficial for heart failure and kidney function. Fall: The patient sustained a fall at a [employer] in [place] on February 09 due to a wet floor. She sought emergency care following the fall and was experiencing pain, which has since improved. X-rays of the left shoulder, left hip with pelvis, and chest were negative for acute fracture, dislocation, or cardiopulmonary disease. Imaging did reveal degenerative joint disease of the acromioclavicular joint, degenerative osteoarthritis with patellofemoral stenosis, and a joint effusion in the left knee. Asthma with nocturnal dyspnea: The patient reports experiencing nocturnal shortness of breath following a recent common cold. She does not currently have an inhaler as her previous one was lost. Medications: - Entresto: for heart condition - Carvedilol: for heart condition - Apixaban (Eliquis): for heart condition - Naprosyn: prescribed as needed for pain after fall Social History: - Travel: Recently traveled to [place]. Diagnostic Results: - Left Shoulder X-ray (02/09): No fracture or dislocation; degenerative joint disease of the AC joint noted. - Left Knee X-ray (02/09): No fracture or dislocation; degenerative osteoarthritis, patellofemoral stenosis, and joint effusion noted. - Chest X-ray (02/09): No evidence of acute cardiopulmonary disease. - Left Hip with Pelvis X-ray (02/09): Negative for acute pathology. Past Medical History - Heart failure - Degenerative joint disease of the acromioclavicular joint - Degenerative osteoarthritis of the left knee - Fall on 02/09 Health Maintenance - Seeking a second opinion consultation with cardiology for management of heart failure. FORMERLY [facility], 1928–1983 Medical History (Updated 02/25/25 @ 20:45 by Aiden Shepard MD) Degenerative joint disease involving multiple joints Accident due to mechanical fall without injury Osteoarthritis of knee Leg pain Hearing loss Frequent stools Mass in neck Hyperlipidemia Prediabetes Urinary incontinence Pain and swelling of lower leg Vaginal atrophy Uterine prolapse Trapezius muscle spasm Tietze's syndrome Thyroglossal duct cyst Pain in right shoulder Osteoarthritis of left knee Obesity, Class I, BMI 30-34.9 Multiparous Low back pain Bilateral shoulder pain Back muscle spasm A-fib FALCON (dyspnea on exertion) GERD (gastroesophageal reflux disease) Glucose intolerance Hearing loss, left Heart failure with reduced ejection fraction Chronic headaches Vitamin D deficiency Surgical History H/O vein stripping H/O tubal ligation S/P tubal ligation Family History Father No problems noted. Mother Stomach cancer Social History Housing: House Alcohol intake: current Alcohol intake frequency: does not drink Patient Tobacco Use Status: Never used Tobacco service: No Current occupational status: disabled Cognitive needs: Yes (cane) Hearing needs: No Vision needs: Yes (contact) Questionnaire PHQ-9 Over the last 2 weeks, how often have you been bothered by any of the following problems? 1. Little interest or pleasure in doing things: several days 2. Feeling down, depressed, or hopeless: not at all 3. Trouble falling or staying asleep, or sleeping too much: not at all 4. Feeling tired or having little energy: several days 5. Poor appetite or overeating: not at all 6. Feeling bad about yourself - or that you are a failure or have let yourself or your family down: not at all 7. Trouble concentrating on things, such as reading the newspaper or watching television: not at all 8. Moving or speaking so slowly that other people could have noticed. Or the opposite - being so fidgety or restless that you have been moving around a lot more than usual: nearly every day 9. Thoughts that you would be better off or of hurting yourself in some way: nearly every day Total score: 8 Depression Screening Interpretation: Negative Depression Screening Done: Yes Source: Developed by Drs. Cecilio Crawford, Ilana Knox, Joe Cameron and colleagues, with an educational mic from [employer]. Thrive Questionnaire Date Thrive assessed: 11/26/24 I am a: Patient What is your living situation today?: I choose not to answer this question Within the past 12 months, did the food you bought not last and you didn't have the money to get more?: I choose not to answer this question Within the past 12 months, did you worry whether your food would run out before you got money to buy more?: I choose not to answer this question Do you have trouble paying for medicines?: No Do you have trouble getting transportation to medical appointments?: No Do you have trouble paying your heating and electricity bill?: No Do you have trouble taking care of your child, family member or friend?: I choose not to answer this question Are you currently unemployed and looking for a job?: No Are you interested in more education?: No Please select the resources that you would like help with: Utilities Currently or been in a relationship where the following occur: I choose not to answer THRIVE Score: 0 AUDIT C Alcohol Use Questionnaire (AUDIT-C) 1. How often do you have a drink containing alcohol?: Never Total Score: 0 AUSTIN-7 AMB Questionnaire AUSTIN-7 Date AUSTIN - 7 assessed: 02/25/25 Feeling nervous, anxious, or on edge: 0 = Not at all Not being able to stop or control worryin = Not at all Worrying too much about different things: 0 = Not at all Trouble relaxin = Not at all Being so restless that it is hard to sit still: 0 = Not at all Becoming easily annoyed or irritable: 0 = Not at all Feeling afraid as if something awful might happen: 0 = Not at all Total AUSTIN-7 score (0-4 normal; 5-9 mild; 10-14 moderate; 15-21 severe): 0 Source: Developed by Drs. Cecilio Crawford, Ilana Knox, Joe Cameron and colleagues, with an educational mic from [employer]. Review of Systems Narrative Review of Systems - Respiratory: Reports nocturnal dyspnea. - Constitutional: Reports recent illness consistent with a common cold. - Musculoskeletal: Reports residual pain in the left knee, which is now worse, following a fall. - Gastrointestinal: Reports recent bout of stomach illness after travel. 10-point ROS reviewed and negative except as noted in HPI Physical exam (Primary Care) Vital Signs: Last Vital Signs Temp 98 F 02/25/25 11:34 Pulse 79 02/25/25 11:34 Resp 16 02/25/25 11:34 BP 152/68 H 02/25/25 11:34 Pulse Ox 99 02/25/25 11:34 Oxygen Delivery Method Room Air 02/25/25 11:34 BMI result Body Mass Index 30.2 Tobacco/Smoking Status: Tobacco use Status Tobacco use date assessed 11/26/24 02/25/25 11:44 Patient Tobacco Use Status Never used Tobacco 02/25/25 11:44 PHQ-9: PHQ-9 Score PHQ-9: Total score 8 02/25/25 14:56 Depression Screening Interpretation: Negative Thrive Assessment: Date of Thrive Assessment Date Thrive assessed 11/26/24 02/25/25 11:44 Currently or been in a relationship where the following occur: I choose not to answer Narrative Physical Exam General: Well-appearing, in no acute distress. Vital signs: Within normal limits. HEENT: Normocephalic, atraumatic. PERRLA, EOMI. Conjunctiva clear, sclera anicteric. Oropharynx clear, mucous membranes moist. TMs intact bilaterally. Neck: Supple, no lymphadenopathy, no thyromegaly, no JVD or carotid bruits. Cardiovascular: RRR, normal S1/S2, no murmurs, rubs, or gallops. Peripheral pulses 2+ and symmetric. No edema. Respiratory: Lungs clear to auscultation bilaterally, no wheezes, rales, or rhonchi. Normal effort. Shortness of breath noted at nighttime. Abdomen: Soft, non-tender, non-distended. Normoactive bowel sounds. No hepatosplenomegaly, no masses. MSK: Full range of motion, no joint swelling or deformity. Normal gait. Degenerative joint disease in the AC joint of the left shoulder. Degenerative osteoarthritis, patellofemoral stenosis, and joint effusion in the left knee. Skin: Warm, dry, intact. No rashes, lesions, or pallor. Neuro: Alert and oriented x3. Cranial nerves II-XII intact. Strength 5/5 throughout. Sensation intact. Reflexes 2+ symmetric. Normal coordination and gait. Psych: Appropriate mood and affect. Normal judgment and insight. Coding Level of Care Code Est Pt Level 3 (29566) Add On Problem Visit Only Diagnoses Heart failure with reduced ejection fraction I50.20 A-fib I48.91 Prediabetes R73.03 Hyperlipidemia E78.5 Accident due to mechanical fall without injury W19.XXXA Degenerative joint disease involving multiple joints M15.9 Assessment & Plan Assessment & Plan (1) Heart failure with reduced ejection fraction: Code(s): I50.20 - Unspecified systolic (congestive) heart failure Category: Medical (2) A-fib: Code(s): I48.91 - Unspecified atrial fibrillation Category: Medical (3) Prediabetes: Code(s): R73.03 - Prediabetes Category: Medical (4) Hyperlipidemia: Code(s): E78.5 - Hyperlipidemia, unspecified Category: Medical (5) Accident due to mechanical fall without injury: Code(s): W19.XXXA - Unspecified fall, initial encounter Category: Medical (6) Degenerative joint disease involving multiple joints: Code(s): M15.9 - Polyosteoarthritis, unspecified Category: Medical Plan Consent Patient was informed and verbally consented to the use of an ambient scribe for clinic note documentation during this visit. Plan 1. Heart Failure - A referral will be placed for the patient to be evaluated by our cardiology group for a second opinion regarding her heart failure management. 2. Asthma With Nocturnal Dyspnea - Levalbuterol inhaler prescribed for as-needed use for nocturnal shortness of breath. - The patient was counseled that the inhaler may cause feelings of nervousness or a rapid heart rate, which is a normal side effect. 3. Follow-Up - The patient will return for a follow-up appointment in two months. Discussion Notes I discussed with the patient her request for a second cardiology opinion due to her concerns about her current management, which she feels involves medication changes without sufficient evaluation. I have placed a referral to our cardiology group. We reviewed the results of her emergency department visit in [place] following a fall, noting no acute fractures but degenerative changes in her left shoulder and knee. I addressed her new symptom of nocturnal shortness of breath and prescribed a levalbuterol inhaler for as-needed use. I counseled her on the potential side effects, such as nervousness and a rapid heart rate, reassuring her that these are not cause for alarm. We agreed on a follow-up appointment in two months. Patient Instructions - You will receive a referral to see one of our heart specialists (cardiologists). - Please try to obtain the records from your recent echocardiogram (heart ultrasound) for your new dural mechanic. - A prescription for a levalbuterol inhaler has been sent to your pharmacy. Use it as needed if you experience shortness of breath at night. - Be aware that the inhaler might make you feel a bit nervous or make your heart beat faster, but this is a normal side effect and not dangerous. - Please schedule a follow-up appointment to see me in two months. Medical Decision Making The patient is a 69-year-old female presenting for a referral to cardiology for a second opinion. She expresses dissatisfaction with her current cardiac care, citing a focus on medication titration without comprehensive re-evaluation. Her medication regimen includes Entresto, carvedilol, and apixaban, but she is non-adherent with metoprolol. Given her concerns and to ensure continuity of care, a referral to our cardiology service is appropriate. We also addressed a recent fall, and I reviewed outside hospital records which ruled out acute fracture. The patient's new complaint of nocturnal dyspnea, possibly related to a recent cold or underlying asthma, warrants symptomatic treatment. I have prescribed a levalbuterol inhaler for as-needed use, selecting levalbuterol to minimize potential cardiac side effects like tachycardia, and counseled her on its use. The plan is for her to follow up in two months. Total Time Statement 20 min Total time spent caring for the patient today includes pre-visit chart review, documentation, review of laboratory and diagnostic imaging results, medication reconciliation, medically necessary evaluation, counseling on diagnoses, care coordination, ordering appropriate tests and medications, review of tests performed by other providers, reporting test results to the patient, and communication with other healthcare providers. Orders: Referrals Cardiology Referral I48.91 - Unspecified atrial fibrillation, I50.20 - Unspecified systolic (congestive) heart failure Medications: New levalbuterol tartrate 45 mcg/actuation 2 inhalations inhalation Q6H 15 grams 0RF shortness of breath
== END 2025-02-25 12:09 | disposition home or self-care (01) ==
LOC: HO.HMCFMS 11:35
PROVIDERS: PCP Student in an Organized Health Care Education/Training Program; Visit Provider Student in an Organized Health Care Education/Training Program
DX: I50.20 Unspecified systolic (congestive) heart failure (principal); I48.91 Unspecified atrial fibrillation; R73.03 Prediabetes; E78.5 Hyperlipidemia, unspecified; W19.XXXA Unspecified fall, initial encounter; M15.9 Polyosteoarthritis, unspecified

== ENCOUNTER → 2025-02-25 11:35 | Outpatient (BNVA) | payer OTHER, SELFPAY | PROVIDERS: PCP Student in an Organized Health Care Education/Training Program; Visit Provider Student in an Organized Health Care Education/Training Program | DX: I50.20 Unspecified systolic (congestive) heart failure (principal); I48.91 Unspecified atrial fibrillation; R73.03 Prediabetes; E78.5 Hyperlipidemia, unspecified; M15.9 Polyosteoarthritis, unspecified; Z91.81 History of falling | CPT/HCPCS: 99212 ==

== ENCOUNTER 2025-03-03 13:15 | Outpatient (AMB) | payer OTHER, SELFPAY ==
--- NOTE | 2025-03-03 13:22 | MHC.PC.OV ---
Vital Signs 03/03/25 13:25 Height 5 ft 4.57 in Weight 179 lb BMI 30.2 BP 109/63 Blood Pressure Location Rt brachial Position Sitting Temp 98.0 F Temp Source Oral Intake Visit Reasons: EP - UpperExtremity Pain/Torso Discomfort Intake Note: Fell while on vacation in [facility] in January and has had constant left side leg, shoulder and side pain. Was seen n [facility] ED Accompanied by: Self / Same As Patient Allergies amoxicillin (From Augmentin) Allergy (Unknown, Verified 03/03/25 13:25) Unknown clavulanic acid (From Augmentin) Allergy (Unknown, Verified 03/03/25 13:25) Unknown Medication List - Last Reconciled 03/05/25 by Aiden Shepard MD apixaban (Eliquis) 5 mg PO BID carvedilol 3.125 mg PO BID dapagliflozin propanediol (Farxiga) 10 mg PO DAILY finerenone (Kerendia) 20 mg PO DAILY levalbuterol tartrate 45 mcg/actuation 2 puffs inhalation Q6H lidocaine 5% 2 patches topical DAILY 15 days sacubitril-valsartan 24-26 mg (Entresto) 1 tab PO BID Tobacco use date assessed: 03/03/25 Fall risk assessment: 1 Fall in past year Last assessed Fall Risk: 03/03/25 Dental Screening Dental Screen Date: 03/03/25 Did you have a dental visit in the last 12 months?: Yes Was dental information given to patient?: Patient has dentist HPI HPI Comments History of Present Illness Details History of Present Illness The patient is a 69-year-old female presenting with musculoskeletal pain and dyspnea. Musculoskeletal Pain: The patient experienced a fall in [place], resulting in persistent pain in her left knee, hip, and shoulder. She notes swelling in her left knee. Imaging conducted post-fall showed no fractures, indicating contusions. She has been managing her symptoms with topical ointment, a heating pad, and Tylenol. The pain has been consistent since the fall. Dyspnea: The patient reports fatigue and has a history of using an inhaler for relief. She mentioned that her request for a pump was denied. Levoalbuterol has been previously offered to her, which she tolerated well. Surgical History: - None reported. Medications: - Tylenol as needed for pain. - Topical ointment for pain relief. Social History: - No social determinants of health were discussed in the conversation. Family History: - None reported. Diagnostic Results: - Imaging: X-rays post-fall showed no fractures. Past Medical History - History of fall. Health Maintenance med rec summary This summary provides an overview of the medical care for a 69-year-old female with multiple complex, chronic conditions. Her recent medical history, spanning from October 2023 to June 2024, focuses on routine health screenings, management of her numerous chronic illnesses, and evaluation of new or worsening symptoms, particularly chronic headaches and pain. The patient's care involves multiple specialties, including primary care, gastroenterology, and diagnostic imaging. The patient has a significant and extensive pre-existing medical history. Rodrigues conditions documented include heart failure with reduced ejection fraction (HFrEF), atrial fibrillation, obesity (BMI 32.29), chronic headaches, gastroesophageal reflux disease (GERD), vitamin D deficiency, osteoarthritis of the knees, bilateral shoulder pain, chronic low back pain, glucose intolerance, and left-sided hearing loss.?Her conditions significantly limit her daily activities, necessitating assistance from a Kitchen Worker (ASSOCIATE PROFESS[employer]). The chronology of recent care begins with a routine screening mammogram on November 14, 2023, which showed no evidence of malignancy.?On April 06, 2024, she presented to a comic writer for a colon cancer screening consultation. At that visit, she reported no gastrointestinal symptoms and her GERD was noted to be well-controlled. A colonoscopy was planned, requiring coordination with cardiology for management of her anticoagulant, Eliquis. A primary care visit on June 25, 2024, addressed several ongoing and worsening issues. The patient reported persistent, daily headaches accompanied by right-sided numbness, dizziness, and nausea. She also complained of right leg pain radiating to her pelvis and chronic pain limiting her activities.?A recent MRI had shown spinal and foraminal stenosis. Due to drowsiness, she had stopped taking gabapentin. The assessment included worsening chronic headaches and chronic low back pain with spinal stenosis. To investigate her worsening headaches, a brain MRI without contrast was ordered and performed on July 12, 2024.?The imaging revealed no acute intracranial abnormalities such as a stroke, mass, or hemorrhage. Findings did include moderate white matter changes likely related to chronic small vessel disease and bilateral mastoid effusions, which may be incidental or related to her symptoms. Medical treatment primarily consists of medication management and physical therapy. For her chronic pain, gabapentin was discontinued due to side effects and replaced with pregabalin (Lyrica) 25 mg twice daily. She was advised to continue Tylenol as needed.?She was receiving physical therapy for knee pain with some reported improvement and was referred for another course of physical therapy for her back pain. Her other chronic conditions are managed with medications including apixaban (Eliquis), Entresto, metoprolol, and pantoprazole. The plan for future care involves close monitoring and further diagnostics. A follow-up appointment was scheduled for one month after her June 25 visit to re-evaluate her pain and a reported cough. Emphasis was placed on the importance of completing the brain MRI, which was subsequently done.?The patient still needs to complete her overdue colorectal cancer screening.?Ongoing management will require a multidisciplinary approach to address her numerous comorbidities, chronic pain, and need for assistance with activities of daily living. 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 The patient's current diagnoses include: Chronic headaches (worsening), chronic low back pain with spinal stenosis, heart failure with reduced ejection fraction, atrial fibrillation, obesity, GERD, osteoarthritis, vitamin D deficiency, glucose intolerance, and left-sided hearing loss.?Her medications include apixaban (Eliquis), Entresto, metoprolol, pantoprazole, vitamin D3, Tylenol as needed, and a recent prescription for pregabalin (Lyrica). [facility] Medical History (Updated 03/05/25 @ 17:26 by Aiden Shepard MD) Shortness of breath Fall Left shoulder pain Left knee pain Left hip pain Degenerative joint disease involving multiple joints Accident due to mechanical fall without injury Osteoarthritis of knee Leg pain Hearing loss Frequent stools Mass in neck Hyperlipidemia Prediabetes Urinary incontinence Pain and swelling of lower leg Vaginal atrophy Uterine prolapse Trapezius muscle spasm Tietze's syndrome Thyroglossal duct cyst Pain in right shoulder Osteoarthritis of left knee Obesity, Class I, BMI 30-34.9 Multiparous Low back pain Bilateral shoulder pain Back muscle spasm A-fib FALCON (dyspnea on exertion) GERD (gastroesophageal reflux disease) Glucose intolerance Hearing loss, left Heart failure with reduced ejection fraction Chronic headaches Vitamin D deficiency Surgical History H/O vein stripping H/O tubal ligation S/P tubal ligation Family History Father No problems noted. Mother Stomach cancer Social History Housing: House Alcohol intake: current Alcohol intake frequency: does not drink Patient Tobacco Use Status: Never used Tobacco e-Cigarette/Vaping Use: Never Used service: No Current occupational status: disabled Cognitive needs: Yes (cane) Hearing needs: No Vision needs: Yes (contact) Questionnaire PHQ-9 Over the last 2 weeks, how often have you been bothered by any of the following problems? 1. Little interest or pleasure in doing things: several days 2. Feeling down, depressed, or hopeless: not at all 3. Trouble falling or staying asleep, or sleeping too much: not at all 4. Feeling tired or having little energy: several days 5. Poor appetite or overeating: not at all 6. Feeling bad about yourself - or that you are a failure or have let yourself or your family down: not at all 7. Trouble concentrating on things, such as reading the newspaper or watching television: not at all 8. Moving or speaking so slowly that other people could have noticed. Or the opposite - being so fidgety or restless that you have been moving around a lot more than usual: nearly every day 9. Thoughts that you would be better off or of hurting yourself in some way: nearly every day Total score: 8 Depression Screening Interpretation: Negative Depression Screening Done: Yes 33501 - PHQ-9 Billing: Yes Source: Developed by Drs. Cecilio Crawford, Ilana Knox, Joe Cameron and colleagues, with an educational mic from [employer]. Thrive Questionnaire Date Thrive assessed: 03/03/25 I am a: Patient What is your living situation today?: I choose not to answer this question Within the past 12 months, did the food you bought not last and you didn't have the money to get more?: I choose not to answer this question Within the past 12 months, did you worry whether your food would run out before you got money to buy more?: I choose not to answer this question Do you have trouble paying for medicines?: No Do you have trouble getting transportation to medical appointments?: No Do you have trouble paying your heating and electricity bill?: No Do you have trouble taking care of your child, family member or friend?: I choose not to answer this question Are you currently unemployed and looking for a job?: No Are you interested in more education?: No Please select the resources that you would like help with: Utilities Currently or been in a relationship where the following occur: I choose not to answer THRIVE Score: 0 AUDIT C Alcohol Use Questionnaire (AUDIT-C) 1. How often do you have a drink containing alcohol?: Never Total Score: 0 AUSTIN-7 AMB Questionnaire AUSTIN-7 Date AUSTIN - 7 assessed: 03/03/25 Feeling nervous, anxious, or on edge: 0 = Not at all Not being able to stop or control worryin = Not at all Worrying too much about different things: 0 = Not at all Trouble relaxin = Not at all Being so restless that it is hard to sit still: 0 = Not at all Becoming easily annoyed or irritable: 0 = Not at all Feeling afraid as if something awful might happen: 0 = Not at all Total AUSTIN-7 score (0-4 normal; 5-9 mild; 10-14 moderate; 15-21 severe): 0 Source: Developed by Drs. Cecilio Crawford, Ilana Knox, Joe Cameron and colleagues, with an educational mic from [employer]. Review of Systems Narrative Review of Systems - Musculoskeletal: Reports pain in the left shoulder, left hip, and left knee. - Respiratory: Reports fatigue requiring an inhaler. 10-point ROS reviewed and negative except as noted in HPI Physical exam (Primary Care) Vital Signs: Last Vital Signs Temp 98.0 F 03/03/25 13:25 BP 109/63 03/03/25 13:25 BMI result Body Mass Index 30.2 Tobacco/Smoking Status: Tobacco use Status Tobacco use date assessed 03/03/25 03/03/25 13:26 Patient Tobacco Use Status Never used Tobacco 03/03/25 13:23 e-Cigarette/Vaping Use Never Used 03/03/25 13:33 PHQ-9: PHQ-9 Score PHQ-9: Total score 8 03/03/25 13:48 Depression Screening Interpretation: Negative Thrive Assessment: Date of Thrive Assessment Date Thrive assessed 03/03/25 03/03/25 13:26 Currently or been in a relationship where the following occur: I choose not to answer Narrative Physical Exam General: Well-appearing, in no acute distress. Vital signs: Within normal limits. HEENT: Normocephalic, atraumatic. PERRLA, EOMI. Conjunctiva clear, sclera anicteric. Oropharynx clear, mucous membranes moist. TMs intact bilaterally. Neck: Supple, no lymphadenopathy, no thyromegaly, no JVD or carotid bruits. Cardiovascular: RRR, normal S1/S2, no murmurs, rubs, or gallops. Peripheral pulses 2+ and symmetric. No edema. Respiratory: Lungs clear to auscultation bilaterally, no wheezes, rales, or rhonchi. Normal effort. Abdomen: Soft, non-tender, non-distended. Normoactive bowel sounds. No hepatosplenomegaly, no masses. MSK: Full range of motion, no joint swelling or deformity. Left knee, left hip, and left shoulder are painful and swollen. Normal gait. Skin: Warm, dry, intact. No rashes, lesions, or pallor. Neuro: Alert and oriented x3. Cranial nerves II-XII intact. Strength 5/5 throughout. Sensation intact. Reflexes 2+ symmetric. Normal coordination and gait. Psych: Appropriate mood and affect. Normal judgment and insight. Office Procedures Flu Questionnaire Does the patient have a severe egg allergy?: No Does the patient have severe life threatening allergies?: No Does the patient have a fever or illness today?: No Has the patient ever had Guillain-Defiance Syndrome?: No Has the patient ever had any past reaction to a flu shot?: No Immunizations Fluarix [id number] (PF) 45 mcg (15 mcg x 3)/0.5 mL IM syringe Performing Provider: Aiden Shepard MD Performing Location: [facility] Documented (not given) by: Rocio Garcia CMA on 03/03/25 13:33 Reason Not Given: Patient Refused Coding Level of Care Code Est Pt Level 3 (25825) Add On Problem Visit Only Diagnoses Heart failure with reduced ejection fraction I50.20 A-fib I48.91 Shortness of breath R06.02 Musculoskeletal pain M79.18 Additional Codes PHQ-9 - 27580 - PHQ-9 Billing: Yes ([id number]) Assessment & Plan Assessment & Plan (1) Heart failure with reduced ejection fraction: Code(s): I50.20 - Unspecified systolic (congestive) heart failure Category: Medical (2) A-fib: Code(s): I48.91 - Unspecified atrial fibrillation Category: Medical (3) Shortness of breath: Code(s): R06.02 - Shortness of breath Category: Medical (4) Musculoskeletal pain: Code(s): M79.18 - Myalgia, other site Category: Medical Plan Consent Patient was informed and verbally consented to the use of an ambient scribe for clinic note documentation during this visit. Plan 1. Musculoskeletal Pain - The pain is attributed to contusions from a fall, as imaging has ruled out fractures. - The plan includes rest and anti-inflammatory medication, noting that the patient cannot take ibuprofen. - A referral for physical therapy is being placed to assist with strengthening. 2. Dyspnea - An electronic prior authorization request for levalbuterol was previously faxed but the status is unclear. Patient will benefit from levalbuterol since she has a history of congestive heart failure Discussion Notes I discussed with the patient that her pain in the left shoulder, hip, and knee is due to contusions from her recent fall, and I reassured her that her X-rays showed no fractures. I recommended rest and advised that she will need an anti-inflammatory, acknowledging that she cannot take ibuprofen. I informed her that a referral for physical therapy is being placed to help her strengthen the affected areas. We also addressed the issue with her inhaler prescription; I explained that the prior authorization for levalbuterol was sent, but its current status is unclear, and I have re-submitted the request. Patient Instructions - Continue to rest your left shoulder, hip, and knee. - You may use Tylenol, heating pads, and your topical ointment to help with the pain. - Do not take ibuprofen. - My office has put in a referral for physical therapy. You will be contacted to schedule an appointment. - We have resent the request for your inhaler to your insurance and will follow up on its approval. Medical Decision Making The patient is a 69-year-old female who presented for follow-up of injuries sustained in a fall. Her complaints of pain in the left shoulder, hip, and knee are consistent with contusions, as acute fractures were ruled out by imaging. The management plan is conservative, involving rest, non-ibuprofen pain relief, and a referral to physical therapy for rehabilitation. A secondary issue involves obtaining an inhaler for her dyspnea. The prior authorization for levalbuterol was reviewed and re-submitted due to an unresolved status with her insurance. Total Time Statement 20 min Total time spent caring for the patient today includes pre-visit chart review, documentation, review of laboratory and diagnostic imaging results, medication reconciliation, medically necessary evaluation, counseling on diagnoses, care coordination, ordering appropriate tests and medications, review of tests performed by other providers, reporting test results to the patient, and communication with other healthcare providers. Orders: Orders PT Evaluation and Treatment 03/03/25 M25.512 - Pain in left shoulder, M25.552 - Pain in left hip, M25.562 - Pain in left knee, W19.XXXA - Unspecified fall, initial encounter Influenza [id number] Immunization 03/03/25 Z23 - Encounter for immunization Medications: Refilled levalbuterol tartrate 45 mcg/actuation 2 puffs inhalation Q6H 15 ea 0RF for dyspnea
[2025-03-03 13:25] VITALS: BP 109/63; TEMP 36.7; BMI 30.2
--- OUTSIDE RECORDS SUMMARY | 2025-03-03 17:20 | XMS_ITS | Clinical Summary ---
Author Organization [facility] ity Address [address] [place] [address] Care Team Providers Care Cutter Gas Name Role Phone Trish Coleman DO Primary Care Provider [phone] Social History Tobacco Use Types Packs/Day Years [...] age to complete this topic Care Teams Cutter Gas Relationship Specialty Start Date [place] [address] PCP - General Internal Medicine 03/27/17
== END 2025-03-03 13:45 | disposition home or self-care (01) ==
LOC: HO.HMCFMS 13:16
PROVIDERS: PCP Student in an Organized Health Care Education/Training Program; Visit Provider Student in an Organized Health Care Education/Training Program
DX: Z23 Encounter for immunization (principal)

== ENCOUNTER → 2025-03-03 13:15 | Outpatient (BNVA) | payer OTHER, SELFPAY | PROVIDERS: PCP Student in an Organized Health Care Education/Training Program; Visit Provider Student in an Organized Health Care Education/Training Program | DX: I50.20 Unspecified systolic (congestive) heart failure (principal); I48.91 Unspecified atrial fibrillation; R06.02 Shortness of breath; M79.18 Myalgia, other site; M25.512 Pain in left shoulder; M25.511 Pain in right shoulder; E66.9 Obesity, unspecified; Z68.32 Body mass index [BMI] 32.0-32.9, adult; R51.9 Headache, unspecified; M17.0 Bilateral primary osteoarthritis of knee; H91.92 Unspecified hearing loss, left ear; Z91.81 History of falling; Z28.21 Immunization not carried out because of patient refusal; Z13.31 Encounter for screening for depression; Z13.39 Encounter for screening examination for other mental health and behavioral disorders | CPT/HCPCS: 90471; 96127; 99212 ==

== ENCOUNTER 2025-03-15 13:02 | Outpatient (REF) | payer OTHER, SELFPAY ==
--- NOTE | ~2025-03-15 | US_ITS ---
EXAMINATION: US SOFT TISSUE HEAD AND/OR NECK CLINICAL INFORMATION: 69-year-old female complaining of neck mass located anterior right neck, chronic, resulting in difficulty swallowing. COMPARISON: None available. TECHNIQUE: Linear transducer frey-scale and color Doppler examination with attention to the region of the palpable abnormality as directed by the patient, within the right neck anteriorly. FINDINGS: At the level of the thyroid cartilage, within the right anterior neck, there is a hypoechoic vascular mass measuring 3.1 x 1.8 x 2.2 cm, with lobulated contours, good through transmission, and homogeneous echogenicity. Origin of this mass is not readily apparent on this examination. This could represent a lymph node, thyroid nodule, or other neck mass. US/US soft tiss head and/or neck IMPRESSION: Nonspecific hypoechoic vascular mass in the right anterior neck at the level of the thyroid cartilage measuring 3.1 x 1.8 x 2.2 cm. Etiology is not readily apparent on this examination. This could represent an abnormal lymph node, a thyroid nodule, or other neck mass. Recommend contrast enhanced neck CT for further characterization. Electronically signed by: Kemar Salamanca MD 03/15/2025 02:00 PM SHAMIR
--- OUTSIDE RECORDS SUMMARY | 2025-03-15 16:56 | XMS_ITS | Clinical Summary ---
Author Organization [facility] ity Address [address] [place] [address] Care Team Providers Care Engineering Instructor Name Role Phone Trish Coleman DO Primary Care Provider [phone] Social History Tobacco Use Types Packs/Day Years [...] age to complete this topic Care Teams Engineering Instructor Relationship Specialty Start Date [place] [address] PCP - General Internal Medicine 03/27/17
--- OUTSIDE RECORDS SUMMARY | 2025-03-15 16:56 | XMS_ITS | Data Portability ---
Author Organization [place] [facility] Address [address] [place] [id number] Care Team Providers Care Senior Principal Process Engineer Name Role Phone SONIA BOURNE Primary Care Provider [facility] OTHER Assessment Encounter Date Assessment Date Assessment LastModified by Organization Details LastModified Time 07/26/2019 07/26/2019 Overview/History : 64 yo female new to and this provider who presents with complain of redness, swelling and yellow discharge of her both eyes X2d; patient denied any vision changes, sensitivity to light, trauma, or eye pain. Patient had a telehealth visit with her PCP today who advised evaluation by . Comorbidities: GERD; chronic back pain, osteoarthritis, chronic headaches Exam: well appearing, no acute distress, non-toxic appearance Pupils are equal, round, reactive to light with extraocular movements intact. Visual acuity is 20/20 in both eyes, funduscopic examination is unremarkable; Eyelids are mildly, conjunctivae is mildly erythematous; moderate amount of purulent discharge noted; no light sensitivity, pain with eye movements, hemorrhage, or foreign body noted; No abnormalities visualized with fluorescein staining; Heart sounds are regular rate and rhythm; no audible murmurs, rubs, or gallops No signs of respiratory distress. Lungs are clear to auscultation in all fileds DDx considered, but not limited to: Bacterial conjunctivitis - most likely dx; purulent eye discharge noted Blepharitis Chalazion/Hordeolu m - unlikely; no localized swelling Dacrocystitis - physical exam findings do not support this dx Periorbital/Orbita l cellulitis - no eye pain, proptosis, vision changes or significant swelling noted on exam Keratitis - no eye pain Corneal abrasion - none noted on physical exam Work up/Results: none Plan/Discussion: - based on clinical presentation bacterial conjunctivitis is the most likely dx at this time - start erythromycin 0.5% eye ointment TID - advised on eye hygeine; d/c eye makeup - follow up with PCP as needed within 5-7 days or sooner if symptoms worsen or do not improve - advised when to seek immediate medical attention/911/ED - patient expressed understanding and agreed to tx plan In order to obtain further information and compare any laboratory results/values, I have accessed patient records on the [facility]. This information was pertinent in my medical decision making today. Time On Scene with Patient: 00:22:32 [email or web address] Not available 07/27/2019 19:47:27 02/25/2022 02/25/2022 Overview/History : 66 YO F new to provider but known to She is being seen today in the comfort of her own home She has PMH of chronic pain, OA, GERD She is being seen today for URI sxs x 2 days Mild non-productive cough, sore throat, fatigue, nasal congestion, and mild sore throat for 2 days. Nyquil and Dayquil very effective in helping sxs, as well as Vics vaporub. Nothing makes sxs worse. She denies any fever, chills, abd pain, NVD<, weakness, lethargy, visual changes, dizziness/vertigo, numbness/tingling, chest pain, SOB. No other reported sxs or concerns today. Exam: Vitals: VSS and afebrile Constitutional: 66 yo Well developed, well nourished, pleasant patient in no apparent distress. Upright comfortable and not toxic appearing on the side of her bed. Eyes: PERRL at 4mm, EOM's intact, no nystagmus, No swelling, no discharge, sclera / conjunctiva clear ENT: sinuses nontender, no lymphadenopathy, TMs/ Canals clear without evidence of infection, no pre/post auricular tenderness, swelling, or redness, no nasal discharge, no erythema/ exudate noted in oropharynx, uvula midline, moist mucous membranes CV: RRR, no rubs/ murmurs/ gallops heard, 2+ radial pulses bilaterally, no edema and no calf tenderness BL, 2+ DP/ PT pulses bilaterally Pulm: breath sounds clear and equal bilaterally, no wheeze/ rhonchi or rales on auscultation. Speaks in full sentences, no increased work of breathing. GI: Soft, non-tender to palpation. No masses, normal bowel sounds. No guarding and no distension : No CVA tenderness bilaterally. NO suprapubic tenderness. MS: Self ambulatory patient, moves all limbs without deficit, no evidence of trauma, equal 5/5 strength BL Neuro: No focal deficits, A&O x4, CN s II-XII grossly normal, gait is not ataxic, no pronator drift, able to stand w/o swaying, finger to nose testing intact Skin: No rash, visible skin appears cdi Psych: Calm, cooperative, non-manic. Pleasant. DDx considered, but not limited to: COVID/Flu - neg rapid tests on scene, COVID PCR pend URI - ML cause of mild sxs at this time AOM/AOE - no infx to the ears BL Strep - no exudates, no fever, no lymphadenopathy no strep Work up/Results: RAPID COVID and FLU neg COVID PCR pend Plan/Discussion: URI: -Mild URI sxs at this time -Of note onboarded by shed team as weakness and dizziness but pt w/ NO REPORTS OR C/O OF THIS WHEN ASKED -VSS and afebrile -Benign exam -COVID and Flu neg, PCR pending -Isolate per CDC guidelines until PCR test returns -She is feeling well and just wanted confirmation that what she had wasn't more than that, she is reassured that at this time that is all she seems to have -CONT OTC meds to help w/ sxs as those have been very effective -F/u if sxs change or worsen -ED precautions discussed Pt is on agreement and verbalizes understanding with the above plans at this time. Pt has no other questions or concerns at this time. All questiosn are answered to the best of my ability. Pt thanks us for our visit today. [email or web address] Not available 02/25/2022 18:25:25 Plan of Treatment Reminders Order Date Submit Date Provider Last Modified By Organization Details Last Modified Time Details Appointments None recorded. Lab unlisted lab - covid-19 (novel coronavirus ) PCR 2021 022 JIMENEZ [facility] (Centralized Electronic Ordering - All Locations), Patient Can Go To The Location Of Their Choice, [id number] 18:04:18 rapid flu (A+B) 2021 022 Occasion [facility] - [facility], [address], [place], [address], 16:42:34 rapid SARS CoV 2 Ag, QL IA, respiratory specimen 2021 022 Occasion [facility] [place], [address], [place], [address], 16:42:36 Referral None recorded. Procedures None recorded. Surgeries None recorded. Imaging None recorded. Medication Orders erythromyci n 5 mg/gram (0.5 %) eye ointment 2019 020 Occasion [id number], [phone] [place], [address], 15:01:13 Patient TargetsNo targets recorded. Patient Instructions Encounter Date Encounter Id Patient Instructions Last Modified By Organization Details Last Modified Time 07/26/2019 [id number] Thank you [facility] yo ur [facility]. We cannot always find the exact cause of your symptoms during your initial visit. Please follow up with your primary care provider or specialist as needed to be rechecked or seek medical attention if your symptoms do not go away or get worse. If you develop any new or worsening symptoms and need after hours care, please go to nearest ER and/or call 911. If you have additional concerns or develop a change in your condition between 8am-10pm, please call Counts include 234 beds at the [facility] at [phone] to help navigate your care. [email or web address] Not available 07/26/2019 17:58:20 Reason for Referral None Reported. Results Created Date Observation Date Name Description Value Unit Range Abnormal Flag Note LastModifiedBy Organization Detail LastModifiedTime 02/26/20 22 02/26/2022 COVID -19 (NOVE L CORON AVIRU S) PCR covid-19 PCR result (neg) abnormal POSIT DENISE Posit denise for detec tion of 2019- novel Coron aviru s (2019 -nCoV ) by real- time RT-PC Noris ansari to the [facility]. To preve nt error s in diagn osis, test resul ts shoul d be inter prete d in the dewey xt of clini jessica findi ngs and other labor atory data. Rare polym orphi sms exist that could lead to false -nega tive or false -posi tive resul ts. If resul ts obtai leyla do not match the clini jessica findi ngs, addit ional testi ng shoul d be consi dered . This test has been autho rized by the FDA under an Emerg ency Use Autho rizat ion (EUA) for use by autho rized labor atori es. Testi ng perfo rmed by real time PCR utili [employer]-l[employer]ru0 SARS- CoV-2 test. Not Available [facility] (Centralized Electronic Ordering - All Locations) Patient Can Go To The Location Of Their Choice, [facility] [place] 02/26/2022 18:04:18 02/26/20 22 02/26/2022 COVID -19 (NOVE L CORON AVIRU S) PCR covid-19 PCR specimen source NASAL Not Available [facility] (Centralized Electronic Ordering - All Locations) Patient Can Go To The Location Of Their Choice, [facility] 02/26/2022 18:04:18 02/26/20 22 02/25/2022 rapid SARS CoV 2 Ag, QL IA, respi rator y speci men Covid-19 (ref: neg) negati ve Not Available [facility] - [address] [place], [address], 02/25/2022 16:41:02 02/26/20 22 02/25/2022 rapid SARS CoV 2 Ag, QL IA, respi rator y speci men Control Visual ized/V alid Not Available [facility] - [address] [place], [address], 02/25/2022 16:41:02 02/26/20 22 02/25/2022 rapid SARS CoV 2 Ag, QL IA, respi rator y speci men [facility], [address] [place] [address], [id number] Not Available [facility] - [address] [place], [address], 02/25/2022 16:41:02 02/26/20 22 02/25/2022 rapid flu (A+B) Flu A (ref: neg) negati ve Not Available [facility] - [address] [place], [address], 02/25/2022 16:40:48 02/26/20 22 02/25/2022 rapid flu (A+B) Flu B (ref: neg) negati ve Not Available [facility] - [address] [place], [address], 02/25/2022 16:40:48 02/26/20 22 02/25/2022 rapid flu (A+B) Control Visual ized/V alid Not Available [facility] - [address] [place], [address], 02/25/2022 16:40:48 02/26/20 22 02/25/2022 rapid flu (A+B) [facility] [address] [place] [address], [id number] Not Available [facility] - Home [address] [place] [address], [address], 02/25/2022 16:40:48 Result Notes None recorded. Procedures Surgical History Date Name Laterality Status Provider Name and Address Organization Details Recorded Time ligation of fallopian tube completed WILBERT Christianson [address] [place], [address], [place] [facility] 02/25/2022 14:50:35 Imaging Results None recorded. Procedure Notes None recorded. Medical Equipment None Reported. Allergies Allergen ID Allergen Name Allergen Category Reaction Reaction Severity Criticality Documentation Date Start Date Code Code System Note Provider Name and Address Organization Details Recorded Time 352124 Augmentin medicatio n Not available Not available Not available 07/26/2019 58423 2 RxNorm WILBERT DOWD [address] [place], [address], [place] [facility] 17:37:13 Medications Name Sig Start Date Stop Date Status Note LastModified by Organization Details LastModified Time cetirizine 10 mg tablet TAKE 1 TABLET BY MOUTH EVERY DAY FOR 14 DAYS active Not Available Not Available No t Available meloxicam 15 mg tablet TAKE 1 TABLET BY MOUTH EVERY DAY NEEDED FOR MODERATE PAIN active Not Available Not Available No t Available peg-electro lyte solution 420 gram oral solution DIRECTED active Not Available Not Available No t Available meloxicam 7.5 mg tablet active Not Available Not Available Not Available famotidine 20 mg tablet TAKE 1 TABLET BY MOUTH TWICE A DAY active Not Available Not Available No t Available lorazepam 0.5 mg tablet PLEASE SEE ATTACHED FOR DETAILED DIRECTION S active Not Available Not Available No t Available methocarbam ol 750 mg tablet TAKE 1 TABLET BY MOUTH THREE TIMES A DAY FOR 10 DAYS. (MAY CAUSE DROWSINES S, CAREFULL WHEN DRIVING) active Not Available Not Available No t Available erythromyci n 5 mg/gram (0.5 %) eye ointment APPLY 1 CM RIBBON INTO THE LOWER CONJUNCTI ASHWIN SAC(S) IN THE AFFECTED EYE(S) BY OPHTHALMI C ROUTE 3 TIMES PER DAY 02/25 completed Not Available Not Available Not Available capsaicin 0.025 % topical cream APPLY TO AFFECTED AREA, 2 TIME A DAY. ([employer] [place] [employer] [place] PLEASE) active Not Available Not Available No t Available estradiol 0.01% (0.1 mg/gram) vaginal cream active Not Available Not Available Not Available naproxen 500 mg tablet 02/25 completed Not Available Not Available Not Available Vitamin D3 25 mcg (1,000 unit) capsule TAKE 1 CAPSULE BY MOUTH EVERY DAY active Not Available Not Available No t Available cyclobenzap rine 5 mg tablet active Not Available Not Available Not Available nitrofurant oin monohydrate /macrocryst als 100 mg capsule 02/25 completed Not Available Not Available Not Available Pain Relief Extra Strength (acetaminop hen) 500 mg tablet active Not Available Not Available Not Available diclofenac 1 % topical gel APPLY 2 GRAMS TOPICALLY 4 TIMES A DAY active Not Available Not Available No t Available Vitals Date Recorded Respiratory rate Heart rate Oxygen saturation Body temperature Systolic And Diastolic Provider Name and Address Organization Details Last Updated DateTime 0 18 /min 88 /min 98 % 98.3 [degF] 128/78 mm[Hg] Not Available [facility] 17:40:27 Date Recorded Oxygen saturation Respiratory rate Body temperature Heart rate Systolic And Diastolic Provider Name and Address Organization Details Last Updated DateTime 2 97 % 18 /min 97.1 [degF] 81 /min 138/76 mm[Hg] Not Available [facility] 2 15:08:43 Social History None recorded. Functional Status Question Answer Note LastModified by Organizat ion Details LastModified Time Do you use any illicit or recreational drugs? No Information not available 02/25/2022 What is your level of alcohol consumption? None Information not available 02/25/2022 Mental Status None recorded. Family History Relationship Description Onset Age of this Age Resolved Age Notes LastModified by Organization Details LastModified Time Mother Malignant neoplasm of ovary [email or web address] Not available 2021 14:49:51 Medical History Condition Response Diabetes N Coronary Artery Disease N High Cholesterol N Pulmonary Embolism N Cancer N Hypertension N Stroke N Asthma N COPD N Depression N Kidney Disease N Gynecological HistoryNo gynecological history recorded. Obstetrics History GPAL:G 0 P 0 0 0 0 Past Encounters Encounter ID Performer Location Encounter Start Date Encounter Closed Date Diagnosis/Indication Diagnosis SNOMED-CT Code Diagnosis ICD10 Code Diagnosis IMO Codes Diagnosis Note [id number] WILBERT DOWD [facility] [address] [place] [address] 07/26/2019 17:34:28 07/28/2019 14:10:51 Conjunctivitis 8681203 H10.9 [id number] WILBERT Vieira [facility] [address] [place] [address] 02/25/2022 14:40:06 02/27/2022 15:10:59 Viral upper respiratory tract infection 291200420 J06.9 Health Concerns Section Related Observation LastModified by Organization Detai ls LastModified Time None Recorded Concern Status LastModified by Organization Details LastModified Time None Recorded Advance Directives Directive None Recorded Payers Insurance Date Sequence Insurance Name Policy Number Policy Melendez Covered Member ID Melendez Member ID Guarantor Name 07/26/2019 1 *SELF PAY* Danya Kan [id number] Danya Kan 02/25/2022 1 [facility] - DOS PRIOR TO 2022 - DUAL ELIGIBLE (MEDICARE REPLACEMENT/ADV ANTAGE - HMO) Danya Kan [id number] Danya Kan Notes Date Note Type Note Provider Name and Address Organization Details Recorded Time 07/26/2019 text/html Mrs. Kan is a 64 yo female new to and this provider who presents with complain of redness, swelling and yellow discharge of her both eyes X2d; patient denied any vision changes, sensitivity to light, trauma, or eye pain. Patient had a telehealth visit with her PCP today who advised evaluation by . WILBERT DOWD [address], [place], [address], [place] [facility] 07/27/2019 19:47:34 02/25/2022 text/html 66 YO F new to provider [facility] comfort of her own homeShe has PMH of chronic pain, OA, GERDShe is being seen today for URI sxs x 2 daysMild non-productive cough, sore throat, fatigue, nasal congestion, and mild sore throat for 2 days.Nyquil and Dayquil very effective in helping sxs, as well as Vics vaporub. Nothing makes sxs worse.She denies any fever, chills, abd pain, NVD<, weakness, lethargy, visual changes, dizziness/vertigo , numbness/tingling , chest pain, SOB. No other reported sxs or concerns today. WILBERT Christianson [address], [place], [address], [place] [facility] 02/25/2022 18:25:42 OBGyn Episode No OBEpisode recorded.
== END 2025-03-15 13:03 | disposition home or self-care (01) ==
LOC: HO.US 13:02
PROVIDERS: PCP Student in an Organized Health Care Education/Training Program; Visit Provider Student in an Organized Health Care Education/Training Program
DX: R22.1 Localized swelling, mass and lump, neck (principal)
CPT/HCPCS: 76536

== ENCOUNTER → 2025-03-15 13:04 | Outpatient (BNV) | payer OTHER, SELFPAY | PROVIDERS: PCP Student in an Organized Health Care Education/Training Program; Visit Provider Radiology Diagnostic Radiology | DX: R22.1 Localized swelling, mass and lump, neck (principal) | CPT/HCPCS: 76536 ==